=== PATIENT | male | born 1945 | race African-American/Black ===

== ENCOUNTER 2017-02-09 12:29 | Inpatient (IN) | payer OTHER, MEDICARE ==
[~2017-02-09] VITALS: Ht 172.7 cm; Wt 77.1 kg
[2017-02-09] MEDS ORDERED: Pantoprazole Inj IVP ONE (12:45)
[2017-02-09 13:22] LABS: BASOPHILS % (AUTO) 0.8 % (0.0-2.0); EOSINOPHILS % (AUTO) 1.4 % (0.0-3.0); LYMPHOCYTES % (AUTO) 10.4 % (20.0-45.0); MEAN CORPUSCULAR HEMOGLOBIN 28.1 PG (27.0-31.0); MEAN CORPUSCULAR HGB CONC 29.2 G/DL (32.0-36.0); MEAN CORPUSCULAR VOLUME 96 FL (80-99); MEAN PLATELET VOLUME 10.8 FL (6.5-10.1); MONOCYTES % (AUTO) 7.4 % (1.0-10.0); NEUTROPHILS % (AUTO) 79.9 % (45.0-75.0); PLATELET COUNT 125 K/UL (150-450); RED BLOOD COUNT 2.98 M/UL (4.70-6.10); RED CELL DISTRIBUTION WIDTH 12.4 % (11.6-14.8); WHITE BLOOD COUNT 11.4 K/UL (4.8-10.8)
[2017-02-09 13:23] LABS: PROTHROMBIN TIME 10.7 SEC (9.30-11.50)
[2017-02-09 13:34] LABS: ANION GAP 9 mmol/L (5-15); CALCIUM 9.1 MG/DL (8.5-10.1); CARBON DIOXIDE 27 MMOL/L (21-32); CHLORIDE 107 MMOL/L (98-107); POTASSIUM 4.2 MMOL/L (3.5-5.1); SODIUM 143 MMOL/L (136-145)
[2017-02-09 13:38] LABS: ALANINE AMINOTRANSFERASE 15 U/L (12-78); ALBUMIN/GLOBULIN RATIO 0.8 (1.0-2.7); ASPARTATE AMINO TRANSFERASE 11 U/L (15-37); LIPASE 106 U/L (73-393); TOTAL PROTEIN 7.7 G/DL (6.4-8.2)
[2017-02-09] MEDS ORDERED: ATROPINE 0.01%-10 ML OP (13:41)
[2017-02-09] MEDS ORDERED: ISOSORBIDE MONO20 MG PO (13:41)
[2017-02-09] MEDS ORDERED: CARVEDILOL12.5 MG ORAL (13:41)
[2017-02-09] MEDS ORDERED: AMLODIPINE BESY10 MG ORAL (13:41)
[2017-02-09] MEDS ORDERED: ASPIR 8181 MG ORAL (13:41)
[2017-02-09] MEDS ORDERED: PREDNISOLONE ACE5 ML OP (13:41)
[2017-02-09] MEDS ORDERED: SENNA8.6 M2 PO (13:41)
[2017-02-09] MEDS ORDERED: HYDRALAZINE HCL25 M1 ORAL (13:41)
[2017-02-09] MEDS ORDERED: VITAMIN D1000 UNI1 ORAL (13:41)
[2017-02-09] MEDS ORDERED: BUMETANIDE2 MG ORAL (13:41)
[2017-02-09] MEDS ORDERED: BRIMONIDINE TART5 ML RIGHT EYE (13:41)
[2017-02-09] MEDS ORDERED: XALATAN2.5 ML RIGHT EYE (13:41)
[2017-02-09] MEDS ORDERED: ATORVASTATIN CA40 MG ORAL (13:41)
[2017-02-09] MEDS ORDERED: COSOPT1 DRO2 RIGHT EYE (13:41)
[2017-02-09] MEDS ORDERED: PLAVIX75 MG ORAL (13:41)
--- NOTE | 2017-02-09 13:43 | Emergency Room Report ---
History of Present Illness General Chief Complaint: Gastrointestinal Bleed Source: Patient, Family Member, EMS Present Illness HPI 72-year-old male brought in by EMS from SNF with vomiting blood EMS denies any vomiting blood in route No other vomiting here History of present illness limited due to patient's dementia paperwork from SNF does not provide additional information on hematemesis Patient's daughter stated that he has been vomiting for 2 weeks since admission to SNF. Had issues with constipation in the past relief with enema. History of SBO or other obstruction previously. Past medical history: CAD, PTSD, anemia from CTD, prostate cancer, PBD, HRT, dementia, hypertension, CHF, right BKA Allergies: Coded Allergies: No Known Allergies (Unverified , 02/09/17) Patient History Past Medical History: other - the history of present illness Past Surgical History: unable to obtain Pertinent Family History: unable to obtain Social History: Denies: smoking, alcohol use, drug use Reviewed Nursing Documentation: PMH: Agreed, PSxH: Agreed Nursing Documentation-PMH Past Medical History: No History, Except For Hx Cardiac Problems: Yes - CAD Hx Hypertension: Yes Hx Cancer: Yes - PROSTATE Hx Dialysis: No - CKD Hx Neurological Problems: Yes - DEMENTIA Review of Systems All Other Systems: limited - dementia Physical Exam Vital Signs Date Time Temp Pulse Resp B/P (MAP) Pulse Ox O2 Delivery O2 Flow Rate FiO2 02/09/17 12:25 97.0 77 20 139/66 100 Room Air Sp02 EP Interpretation: reviewed, normal General Appearance: normal inspection, well appearing, no apparent distress, alert, GCS 15, non-toxic Head: normocephalic, atraumatic Eyes: bilateral eye PERRL, bilateral eye EOMI ENT: normal ENT inspection, hearing grossly normal, normal pharynx, no angioedema, normal voice, TMs + canals normal, uvula midline, moist mucus membranes Neck: normal inspection, full range of motion, supple, thyroid normal, no meningismus, no bony tend Respiratory: normal inspection, lungs clear, normal breath sounds, no rhonchi, no respiratory distress, no retraction, no accessory muscle use, no wheezing, speaking full sentences Cardiovascular #1: regular rate, rhythm, no edema, no JVD, normal capillary refill Gastrointestinal: normal inspection, normal bowel sounds, no peritonitis, non- distended, no guarding, no hernia, no pulsatile mass, other - Mild abd distention. TTP max periumbilical Genitourinary: no CVA tenderness Musculoskeletal: normal inspection, back normal, normal range of motion, no calf tenderness, pelvis stable, Violeta's Sign negative Neurologic: normal inspection, alert, oriented x3, responsive, vulcanizer operator III-XII nml as tested, motor strength/tone normal, cerebellar normal, normal gait, speech normal Psychiatric: normal inspection, judgement/insight normal, mood/affect normal, no suicidal/homicidal ideation, no delusions Skin: normal inspection, normal color, no rash Lymphatic: normal inspection, no adenopathy Medical Decision Making Diagnostic Impression: Primary Impression: Hematemesis Qualified Codes: K92.0 - Hematemesis Additional Impressions: Hyperglycemia CKD (chronic kidney disease) Qualified Codes: N18.9 - Chronic kidney disease, unspecified Abdominal pain Qualified Codes: R10.33 - Periumbilical pain Constipation Qualified Codes: K59.00 - Constipation, unspecified ER Course Hematemesis: hb 8.5. Labs also showed CKD., creatinine 4.0, but K normal. mild leukocytosis, likely reactionary from vomiting Given protonix bolus and gtt for upper GI bleed CT abdomen does not show SBO or volvulus on ER review Likely constipation due to immobility and poor transit Endorse to Dr. Tran for Dr Evans Patient from [place] Tele admit 219pm EKG Diagnostic Results Rate: tachycardiac Rhythm: NSR ST Segments: no acute changes ASA given to the pt in ED: No Rhythm Strip Diag. Results EP Interpretation: yes Rate: 62 Rhythm: NSR, no PVC's, no ectopy Last Vital Signs Date Time Temp Pulse Resp B/P (MAP) Pulse Ox O2 Delivery O2 Flow Rate FiO2 02/09/17 12:25 97.0 77 20 139/66 100 Room Air Status: improved Disposition: ADMITTED INPATIENT Condition: Serious Referrals: ZARI EVANS (PCP) TOM JORGENSEN M.D. Feb 09, 2017 13:43
[2017-02-09] MEDS ORDERED: Pantoprazole 80 MG in NS 250 ML IV ONE (13:45)
[2017-02-09] MEDS ORDERED: Pantoprazole Inj ONE (13:52)
[2017-02-09 14:21] VITALS: BP 153/63
[2017-02-09 14:35] VITALS: BP 128/65
[2017-02-09] MEDS ORDERED: Miralax 17gm pkt ORAL PRN (14:45)
[2017-02-09] MEDS ORDERED: Morphine Sulfate 2mg/ml Inj IVP PRN (14:45)
[2017-02-09] MEDS ORDERED: Mylanta II UD 30ml ORAL PRN (14:45)
[2017-02-09] MEDS ORDERED: Nitroglycerin Subl 0.4mg tab SL PRN (14:45)
--- NOTE | 2017-02-09 15:05 | GI Initial Consult Note ---
LoydaMay Rah N.P. 02/09/17 1505: History of Present Illness General Date patient seen: Feb 09, 2017 Time patient seen: 15:01 Reason for Hospitalization: Gastrointestinal Bleed Referring physician: AUGUST CHU Reason for Consultation: UGIB Present Illness HPI 72-year-old male brought in by EMS from [facility] with vomiting blood EMS denies any vomiting blood in route No other vomiting here History of present illness limited due to patient's dementia paperwork from [facility] does not provide additional information on hematemesis Patient's daughter stated that he has been vomiting for 2 weeks since admission to SNF. Had issues with constipation in the past relief with enema. History of SBO or other obstruction previously. GI consulted for UGIB. HPI as noted above. Pt seen on floor, awake A&Ox4 NAD with no active s/sx of N/V/D. No reports of hematemesis in the ED. Per patient , he had multiple episodes of hematemesis he reports as "a lot." NAD. Presents today with mild leukocytosis and anemia. Lipase WNL. Denies any history of endoscopies / colonoscopies. Home Meds Reported Medications Sennosides (SENNA) 8.6 Mg Tablet, 17.2 MG PO, TAB 02/09/17 Prednisolone Acetate (PREDNISOLONE ACETATE) 5 Ml Drops.susp, 5 ML OP QID 02/09/17 Latanoprost* (XALATAN*) 2.5 Ml Drops, 1 DROP RIGHT EYE BEDTIME, #2.5 ML 0 Refills 02/09/17 Isosorbide Mononitrate (ISOSORBIDE MONONITRATE) 20 Mg Tablet, 60 MG PO BEDTIME, TAB 02/09/17 Hydralazine Hcl* (HYDRALAZINE HCL*) 25 Mg Tablet, 25 MG ORAL EVERY 12 HOURS, TAB 0 Refills 02/09/17 Dorzolamide HCl/Timolol Maleat (Dorzolamide-Timolol Eye Drops) 10 Ml Drops, 1 DROP RIGHT EYE BID, ML 02/09/17 Clopidogrel Bisulfate* (PLAVIX*) 75 Mg Tablet, 75 MG ORAL DAILY, TAB 02/09/17 Cholecalciferol (Vitamin D3)* (VITAMIN D*) 1,000 Unit Tablet, 1000 UNIT ORAL DAILY, #30 TAB 02/09/17 Carvedilol* (CARVEDILOL*) 12.5 Mg Tablet, 12.5 MG ORAL EVERY 12 HOURS, TAB 02/09/17 Bumetanide* (BUMETANIDE*) 2 Mg Tablet, 2 MG ORAL DAILY, TAB 02/09/17 Brimonidine Tartrate* (ALPHAGAN*) 5 Ml Drops, 1 DROP RIGHT EYE BID, ML 02/09/17 Atropine Sulfate in 0.9% NaCl (ATROPINE 0.01%-NS EYE DROPS) 10 Ml Drops, OP, ML 02/09/17 Atorvastatin Calcium* (ATORVASTATIN CALCIUM*) 40 Mg Tablet, 80 MG ORAL BEDTIME, TAB 02/09/17 Aspirin* (ASPIR 81*) 81 Mg Tablet.dr, 81 MG ORAL DAILY, TAB 02/09/17 Amlodipine Besylate* (AMLODIPINE BESYLATE*) 10 Mg Tablet, 10 MG ORAL DAILY, TAB 02/09/17 Med list reviewed/reconciled: Yes Allergies: Coded Allergies: No Known Allergies (Unverified , 02/09/17) Patient History PMH Narrative Past medical history: CAD, PTSD, anemia from CTD, prostate cancer, PBD, HRT, dementia, hypertension, CHF, right BKA Past Medical History: other - the history of present illness Past Surgical History: unable to obtain Pertinent Family History: unable to obtain Social History: Denies: smoking, alcohol use, drug use Reviewed Nursing Documentation: PMH: Agreed, PSxH: Agreed Nursing Documentation-PMH Past Medical History: No History, Except For Hx Cardiac Problems: Yes - CAD Hx Hypertension: Yes Hx Cancer: Yes - PROSTATE Hx Dialysis: No - CKD Hx Neurological Problems: Yes - DEMENTIA Review of Systems All Other Systems: negative except mentioned in HPI Physical Exam Vital Signs Date Time Temp Pulse Resp B/P (MAP) Pulse Ox O2 Delivery O2 Flow Rate FiO2 02/09/17 12:25 97.0 77 20 139/66 100 Room Air Sp02 EP Interpretation: reviewed, normal Labs Laboratory Tests Test 02/09/17 13:04 White Blood Count 11.4 K/UL (4.8-10.8) H Red Blood Count 2.98 M/UL (4.70-6.10) L Hemoglobin 8.4 G/DL (14.2-18.0) L Hematocrit 28.6 % (42.0-52.0) L Mean Corpuscular Volume 96 FL (80-99) Mean Corpuscular Hemoglobin 28.1 PG (27.0-31.0) Mean Corpuscular Hemoglobin Concent 29.2 G/DL (32.0-36.0) L Red Cell Distribution Width 12.4 % (11.6-14.8) Platelet Count 125 K/UL (150-450) L Mean Platelet Volume 10.8 FL (6.5-10.1) H Neutrophils (%) (Auto) 79.9 % (45.0-75.0) H Lymphocytes (%) (Auto) 10.4 % (20.0-45.0) L Monocytes (%) (Auto) 7.4 % (1.0-10.0) Eosinophils (%) (Auto) 1.4 % (0.0-3.0) Basophils (%) (Auto) 0.8 % (0.0-2.0) Prothrombin Time 10.7 SEC (9.30-11.50) Prothromb Time International Ratio 1.0 (0.9-1.1) Sodium Level 143 MMOL/L (136-145) Potassium Level 4.2 MMOL/L (3.5-5.1) Chloride Level 107 MMOL/L (98-107) Carbon Dioxide Level 27 MMOL/L (21-32) Anion Gap 9 mmol/L (5-15) Blood Urea Nitrogen 69 mg/dL (7-18) H Creatinine 4.0 MG/DL (0.55-1.30) H Estimat Glomerular Filtration Rate mL/min (>60) Glucose Level 388 MG/DL (74-106) H Calcium Level 9.1 MG/DL (8.5-10.1) Total Bilirubin 0.4 MG/DL (0.2-1.0) Aspartate Amino Transf (AST/SGOT) 11 U/L (15-37) L Alanine Aminotransferase (ALT/SGPT) 15 U/L (12-78) Alkaline Phosphatase 194 U/L (46-116) H Total Protein 7.7 G/DL (6.4-8.2) Albumin 3.3 G/DL (3.4-5.0) L Globulin 4.4 g/dL Albumin/Globulin Ratio 0.8 (1.0-2.7) L Lipase 106 U/L (73-393) General Appearance: well appearing, no apparent distress, alert Head: normocephalic EENT: PERRL/EOMI, normal ENT inspection Neck: supple Respiratory: normal breath sounds, no respiratory distress Cardiovascular: normal rate Gastrointestinal: normal inspection, non tender, soft, normal bowel sounds, non -distended Rectal: deferred Genitourinary: deferred Musculoskeletal: normal inspection, back normal, other - R leg prothesis Neurologic: normal inspection, alert, responsive Psychiatric: normal inspection, judgement/insight normal, memory normal Skin: normal inspection, normal color, no rash, warm/dry, palpation normal, well hydrated Lymphatic: normal inspection, no adenopathy Current Medications Current Medications Medications (Trade) Dose Ordered Sig/Thad Route PRN Reason Start Time Stop Time Status Last Admin Dose Admin Acetaminophen (Tylenol) 650 mg Q4H PRN ORAL fever 02/09/17 14:45 03/11/17 14:44 Al Hydroxide/Mg Hydroxide (Mylanta II) 30 ml Q6H PRN ORAL dyspepsia 02/09/17 14:45 03/11/17 14:44 Amlodipine Besylate (Norvasc) 10 mg DAILY ORAL 02/10/17 09:00 03/12/17 08:59 Carvedilol (Coreg) 12.5 mg EVERY 12 HOURS ORAL 02/09/17 21:00 03/11/17 20:59 Dextrose (Dextrose 50%) STAT PRN IV Hypoglycemia 02/09/17 14:45 03/11/17 14:44 Dextrose/Sodium Chloride 1,000 ml @ 100 mls/hr Q10H IV 02/09/17 16:00 03/11/17 15:59 Diphenhydramine HCl (Benadryl) 25 mg Q6H PRN ORAL Itching/Pruritis 02/09/17 14:45 03/11/17 14:44 Hydralazine HCl (Apresoline) 25 mg EVERY 12 HOURS ORAL 02/09/17 21:00 03/11/17 20:59 Morphine Sulfate (Morphine Sulfate) 2 mg Q4H PRN IVP severe Pain (Pain Scale 7-10) 02/09/17 14:45 02/16/17 14:44 Nitroglycerin (Ntg) 0.4 mg Q5M X 3 DOSES PRN SL Prn Chest Pain 02/09/17 14:45 03/11/17 14:44 Ondansetron HCl (Zofran) 4 mg Q6H PRN IVP Nausea & Vomiting 02/09/17 14:45 03/11/17 14:44 Pantoprazole 80 mg/Sodium Chloride 250 ml @ 25 mls/hr Q10H ONCE IV 02/09/17 13:45 02/09/17 23:44 02/09/17 13:59 Phytonadione 10 mg/Dextrose 56 ml @ 110 mls/hr ONCE ONCE IVPB 02/09/17 15:45 02/09/17 16:15 Polyethylene Glycol (Miralax) 17 gm HSPRN PRN ORAL Constipation 1st line Agent 02/09/17 14:45 03/11/17 14:44 Sennosides (Senokot) 17.2 mg DAILY ORAL 02/10/17 09:00 03/12/17 08:59 Sodium Chloride 1,000 ml @ 100 mls/hr Q10H ONCE IV 02/09/17 12:38 02/09/17 22:37 02/09/17 12:52 Temazepam (Restoril) 15 mg HSPRN PRN ORAL Insomnia 02/09/17 14:45 02/16/17 14:44 GI: Plan Problems: (1) Anemia (2) Hematemesis (3) Constipation (4) Abdominal pain Plan EGD scheduled for tomorrow. - maintain NPO + IVFs, ice chips ok. - hold all blood thinners - cont PPI gtt, transition to BID after last bag. anemia work up OB stool r/o GI bleed monitor H&H, prn transfusions bowel regime ppi zofran prn fu labs Discussed with Dr. Grady. Thank you for this patient referral, we will follow. DAYNA GRADY 02/11/17 0854: History of Present Illness General Reason for Hospitalization: Gastrointestinal Bleed Present Illness Home Meds Reported Medications Sennosides (SENNA) 8.6 Mg Tablet, 17.2 MG PO, TAB 02/09/17 Prednisolone Acetate (PREDNISOLONE ACETATE) 5 Ml Drops.susp, 5 ML OP QID 02/09/17 Latanoprost* (XALATAN*) 2.5 Ml Drops, 1 DROP RIGHT EYE BEDTIME, #2.5 ML 0 Refills 02/09/17 Isosorbide Mononitrate (ISOSORBIDE MONONITRATE) 20 Mg Tablet, 60 MG PO BEDTIME, TAB 02/09/17 Hydralazine Hcl* (HYDRALAZINE HCL*) 25 Mg Tablet, 25 MG ORAL EVERY 12 HOURS, TAB 0 Refills 02/09/17 Dorzolamide HCl/Timolol Maleat (Dorzolamide-Timolol Eye Drops) 10 Ml Drops, 1 DROP RIGHT EYE BID, ML 02/09/17 Clopidogrel Bisulfate* (PLAVIX*) 75 Mg Tablet, 75 MG ORAL DAILY, TAB 02/09/17 Cholecalciferol (Vitamin D3)* (VITAMIN D*) 1,000 Unit Tablet, 1000 UNIT ORAL DAILY, #30 TAB 02/09/17 Carvedilol* (CARVEDILOL*) 12.5 Mg Tablet, 12.5 MG ORAL EVERY 12 HOURS, TAB 02/09/17 Bumetanide* (BUMETANIDE*) 2 Mg Tablet, 2 MG ORAL DAILY, TAB 02/09/17 Brimonidine Tartrate* (ALPHAGAN*) 5 Ml Drops, 1 DROP RIGHT EYE BID, ML 02/09/17 Atropine Sulfate in 0.9% NaCl (ATROPINE 0.01%-NS EYE DROPS) 10 Ml Drops, OP, ML 02/09/17 Atorvastatin Calcium* (ATORVASTATIN CALCIUM*) 40 Mg Tablet, 80 MG ORAL BEDTIME, TAB 02/09/17 Aspirin* (ASPIR 81*) 81 Mg Tablet.dr, 81 MG ORAL DAILY, TAB 02/09/17 Amlodipine Besylate* (AMLODIPINE BESYLATE*) 10 Mg Tablet, 10 MG ORAL DAILY, TAB 02/09/17 Allergies: Coded Allergies: No Known Allergies (Unverified , 02/09/17) Patient History Social History Narrative The patient was seen and examined at bedside and all new and available data was reviewed in the patients chart. I agree with the above findings, impression and plan. (Patient seen earlier today. Signature stamp does not reflect patient encounter time.). - MD Loyda Sweet Anh Rah N.PLuis Feb 09, 2017 15:05 DAYNA GRADY Feb 11, 2017 08:54
[2017-02-09] MEDS ORDERED: Phytonadione 10 MG in D5W 55 ML IVPB ONE (15:45)
[2017-02-09 17:58] VITALS: BP 150/69
[2017-02-09] MEDS: D5NS 1,000 ML IV SCH (17:59)
--- NOTE | 2017-02-09 18:54 | Consultation ---
History of Present Illness General Date patient seen: Feb 09, 2017 Chief Complaint: Gastrointestinal Bleed Referring physician: AUGUST CHU Reason for Consultation: UGIB Present Illness HPI 72-year-old male with Pas medical history of CAD, CRI, anemia, prostate cancer, dementia, hypertension, CHF, right BKA brought in by EMS from SNF with vomiting blood Patient's daughter stated that he has been vomiting for 2 weeks since admission to SNF. Pt was anemic in ER and admitted to telemetry for acute GI bleeding. Allergies: Coded Allergies: No Known Allergies (Unverified , 02/09/17) Medication History Scheduled Amlodipine Besylate* (Amlodipine Besylate*), 10 MG ORAL DAILY, (Reported) Aspirin* (Aspir 81*), 81 MG ORAL DAILY, (Reported) Atorvastatin Calcium* (Atorvastatin Calcium*), 80 MG ORAL BEDTIME, (Reported) Brimonidine Tartrate* (Alphagan*), 1 DROP RIGHT EYE BID, (Reported) Bumetanide* (Bumetanide*), 2 MG ORAL DAILY, (Reported) Carvedilol* (Carvedilol*), 12.5 MG ORAL EVERY 12 HOURS, (Reported) Cholecalciferol (Vitamin D3)* (Vitamin D*), 1,000 UNIT ORAL DAILY, (Reported) Clopidogrel Bisulfate* (Plavix*), 75 MG ORAL DAILY, (Reported) Dorzolamide HCl/Timolol Maleat (Dorzolamide-Timolol Eye Drops), 1 DROP RIGHT EYE BID, (Reported) Hydralazine Hcl* (Hydralazine Hcl*), 25 MG ORAL EVERY 12 HOURS, (Reported) Isosorbide Mononitrate (Isosorbide Mononitrate), 60 MG PO BEDTIME, (Reported) Latanoprost* (Xalatan*), 1 DROP RIGHT EYE BEDTIME, (Reported) Prednisolone Acetate (Prednisolone Acetate), 5 ML OP QID, (Reported) Miscellaneous Medications Atropine Sulfate in 0.9% NaCl (Atropine 0.01%-Ns Eye Drops), Unknown Dose OP, ( Reported) Sennosides (Senna), 17.2 MG PO, (Reported) Patient History Healthcare decision maker VAMSI KNOTT Resuscitation status Advanced Directive on File No Past Medical/Surgical History Past Medical/Surgical History: (1) PVD (peripheral vascular disease) (2) Hx of right BKA (3) CKD (chronic kidney disease) (4) Hyperglycemia (5) Dementia Review of Systems Constitutional: Reports: no symptoms Eye: Reports: no symptoms Respiratory: Reports: no symptoms Physical Exam General Appearance: WD/WN Lines, tubes and drains: peripheral HEENT: normocephalic Neck: non-tender, normal alignment Respiratory/Chest: chest wall non-tender, lungs clear Breasts: no masses Cardiovascular/Chest: normal peripheral pulses Abdomen: normal bowel sounds Extremities: normal range of motion Skin Exam: normal pigmentation Last 24 Hour Vital Signs Date Time Temp Pulse Resp B/P (MAP) Pulse Ox O2 Delivery O2 Flow Rate FiO2 02/09/17 17:58 97.9 66 19 150/69 Room Air 02/09/17 14:30 66 12 153/63 99 Room Air 02/09/17 14:21 97.0 66 12 153/63 99 Room Air 02/09/17 12:25 97.0 77 20 139/66 100 Room Air Intake and Output 02/09/17 02/10/17 19:00 07:00 Intake Total 0 ml Balance 0 ml Intake Oral 0 ml Laboratory Tests Test 02/09/17 13:04 White Blood Count 11.4 K/UL (4.8-10.8) H Red Blood Count 2.98 M/UL (4.70-6.10) L Hemoglobin 8.4 G/DL (14.2-18.0) L Hematocrit 28.6 % (42.0-52.0) L Mean Corpuscular Volume 96 FL (80-99) Mean Corpuscular Hemoglobin 28.1 PG (27.0-31.0) Mean Corpuscular Hemoglobin Concent 29.2 G/DL (32.0-36.0) L Red Cell Distribution Width 12.4 % (11.6-14.8) Platelet Count 125 K/UL (150-450) L Mean Platelet Volume 10.8 FL (6.5-10.1) H Neutrophils (%) (Auto) 79.9 % (45.0-75.0) H Lymphocytes (%) (Auto) 10.4 % (20.0-45.0) L Monocytes (%) (Auto) 7.4 % (1.0-10.0) Eosinophils (%) (Auto) 1.4 % (0.0-3.0) Basophils (%) (Auto) 0.8 % (0.0-2.0) Prothrombin Time 10.7 SEC (9.30-11.50) Prothromb Time International Ratio 1.0 (0.9-1.1) Sodium Level 143 MMOL/L (136-145) Potassium Level 4.2 MMOL/L (3.5-5.1) Chloride Level 107 MMOL/L (98-107) Carbon Dioxide Level 27 MMOL/L (21-32) Anion Gap 9 mmol/L (5-15) Blood Urea Nitrogen 69 mg/dL (7-18) H Creatinine 4.0 MG/DL (0.55-1.30) H Estimat Glomerular Filtration Rate mL/min (>60) Glucose Level 388 MG/DL (74-106) H Calcium Level 9.1 MG/DL (8.5-10.1) Total Bilirubin 0.4 MG/DL (0.2-1.0) Aspartate Amino Transf (AST/SGOT) 11 U/L (15-37) L Alanine Aminotransferase (ALT/SGPT) 15 U/L (12-78) Alkaline Phosphatase 194 U/L (46-116) H Total Protein 7.7 G/DL (6.4-8.2) Albumin 3.3 G/DL (3.4-5.0) L Globulin 4.4 g/dL Albumin/Globulin Ratio 0.8 (1.0-2.7) L Lipase 106 U/L (73-393) Height (Feet): 5 Height (Inches): 8.00 Weight (Pounds): 170 Medications Current Medications Medications (Trade) Dose Ordered Sig/Thad Route PRN Reason Start Time Stop Time Status Last Admin Dose Admin Acetaminophen (Tylenol) 650 mg Q4H PRN ORAL fever 02/09/17 14:45 03/11/17 14:44 Al Hydroxide/Mg Hydroxide (Mylanta II) 30 ml Q6H PRN ORAL dyspepsia 02/09/17 14:45 03/11/17 14:44 Amlodipine Besylate (Norvasc) 10 mg DAILY ORAL 02/10/17 09:00 03/12/17 08:59 Carvedilol (Coreg) 12.5 mg EVERY 12 HOURS ORAL 02/09/17 21:00 03/11/17 20:59 Dextrose (Dextrose 50%) STAT PRN IV Hypoglycemia 02/09/17 14:45 03/11/17 14:44 Dextrose/Sodium Chloride 1,000 ml @ 100 mls/hr Q10H IV 02/09/17 16:00 03/11/17 15:59 02/09/17 17:59 Diphenhydramine HCl (Benadryl) 25 mg Q6H PRN ORAL Itching/Pruritis 02/09/17 14:45 03/11/17 14:44 Hydralazine HCl (Apresoline) 25 mg EVERY 12 HOURS ORAL 02/09/17 21:00 03/11/17 20:59 Morphine Sulfate (Morphine Sulfate) 2 mg Q4H PRN IVP severe Pain (Pain Scale 7-10) 02/09/17 14:45 02/16/17 14:44 Nitroglycerin (Ntg) 0.4 mg Q5M X 3 DOSES PRN SL Prn Chest Pain 02/09/17 14:45 03/11/17 14:44 Ondansetron HCl (Zofran) 4 mg Q6H PRN IVP Nausea & Vomiting 02/09/17 14:45 03/11/17 14:44 Polyethylene Glycol (Miralax) 17 gm HSPRN PRN ORAL Constipation 1st line Agent 02/09/17 14:45 03/11/17 14:44 Sennosides (Senokot) 17.2 mg DAILY ORAL 02/10/17 09:00 03/12/17 08:59 Temazepam (Restoril) 15 mg HSPRN PRN ORAL Insomnia 02/09/17 14:45 02/16/17 14:44 Assessment/Plan Problem List: (1) Symptomatic anemia ICD Codes: D64.9 - Anemia, unspecified SNOMED: 958263363 (2) Hematemesis ICD Codes: K92.0 - Hematemesis SNOMED: 6111270 Qualifiers: Qualified Codes: K92.0 - Hematemesis (3) Hx of right BKA ICD Codes: Z89.511 - Acquired absence of right leg below knee SNOMED: 533267811, 898620011, 342609963 (4) Dementia ICD Codes: F03.90 - Unspecified dementia without behavioral disturbance SNOMED: 82409143 (5) At high risk for aspiration ICD Codes: Z91.89 - Other specified personal risk factors, not elsewhere classified SNOMED: 998679772 (6) Hypertension ICD Codes: I10 - Essential (primary) hypertension SNOMED: 37738390 (7) Diabetes mellitus ICD Codes: E11.9 - Type 2 diabetes mellitus without complications SNOMED: 39539572 Assessment/Plan NPO GI evaluation IV fluids sliding scale swallow evaluation symptomatic treatment. JACKSON LAY Feb 09, 2017 18:54
[2017-02-09 20:08] VITALS: BP 139/69
[2017-02-09] MEDS: Carvedilol 12.5mg tab ORAL SCH (21:35)
[2017-02-09] MEDS: HydrALAZINE 25mg tab ORAL SCH (21:36)
[2017-02-09] MEDS: NovoLOG Insulin Flexpen SUBQ SCH (22:21)
[2017-02-10] VITALS (11 sets, daily range): BP systolic 147–168; BP diastolic 59–80
[2017-02-10] MEDS: D5NS 1,000 ML IV SCH ×2 (01:35→04:20)
--- NOTE | 2017-02-10 05:02 | Diagnostic Imaging Report ---
Indication: 72-year-old male vomiting blood Technique: Spiral acquisitions obtained through the abdomen and pelvis. No oral contrast utilized, reason stated No IV contrast utilized, reasons not stated.. Multiplanar reconstructions were generated. Total dose length product 750 mGycm. CTDIvol(s) 50 mGy. Dose reduction achieved using automated exposure control Comparison: none Findings: Lack of enteric contrast limits assessment of the GI tract. There is mild distention of the rectum with feces, mild thickening of the rectal wall, and minimal presacral fat stranding. There is considerable stool throughout the remainder of the colon. No evidence of diverticulosis or diverticulitis. The appendix is normal. The terminal ileum is somewhat prominent, demonstrates small bowel feces, but no wall thickening. No small bowel distention otherwise. No free or loculated intraperitoneal air or fluid. There is a hiatal hernia, as well as diffuse distention with fluid and food in the distal esophagus. The stomach and duodenum are otherwise unremarkable. Lack of IV contrast limits assessment of the solid organs. The gallbladder contains gallstones. The liver demonstrates a calcification within segment 4A. The bile ducts are unremarkable. The pancreas is unremarkable. The spleen contains calcifications. The adrenals are unremarkable. The kidneys demonstrate lobulated margins. The right kidney demonstrates a 1.8 cm cyst in the lower pole. No renal or ureteral calculi, hydronephrosis, or hydroureter. The bladder wall is equivocally mildly thickened. No pelvic mass or adenopathy. There is evidence of prior prostatectomy and pelvic oralia dissection. There is a pericardial effusion measuring up to 12 mm thick. The heart is enlarged. Granulomatous calcification is seen at the right lung base. Linear bands of atelectasis and/or scarring are seen at both lung bases. The bones demonstrate degenerative proliferative spondylosis of the lower thoracic spine and of the lumbar facets. Impression: Limited assessment of the GI tract, given lack of enteric contrast administration Mild distention of the rectum with feces, mild thickening of the wall, and some infiltration of the presacral fat, could indicate mild fecal impaction with associated stercoral colitis. Correlate with clinical findings Prominence of the terminal ileum, with evidence of stasis of contents, significance uncertain. No definite obstructive pathology, however. Hiatal hernia. Diffuse distention of the distal esophagus with food and fluid, probably on the basis of dysmotility Cholelithiasis Equivocal gallbladder wall thickening, could indicate cystitis or chronic bladder obstruction Evidence of prior prostatectomy Pericardial effusion Cardiomegaly Other findings as noted, including degenerative proliferative spondylosis; granulomatous calcifications of the right lung base, liver, and spleen; right lower pole renal cyst The CT scanner at [facility] is accredited by the [employer] and the scans are performed using protocols designed to limit radiation exposure to as low as reasonably achievable to attain images of sufficient resolution adequate for diagnostic evaluation.
[2017-02-10] MEDS: NovoLOG Insulin Flexpen SUBQ SCH ×4 (06:34→21:53)
--- NOTE | 2017-02-10 06:55 | Anethesia Preoperative Eval ---
Anesthesia Pre-op PMH/ROS General Date of Evaluation: Feb 10, 2017 Time of Evaluation: 06:46 Anesthesiologist: savage ASA Score: ASA 4 Mallampati Score Class I : Soft palate, uvula, fauces, pillars visible Class II: Soft palate, uvula, fauces visible Class III: Soft palate, base of uvula visible Class IV: Only hard plate visible Mallampati Classification: Class II Surgeon: dusty Diagnosis: gi bleed Surgical Procedure: egd Anesthesia History: none Social History: smoking - nonsmoker Family History: no anesthesia problems Allergies: Coded Allergies: No Known Allergies (Unverified , 02/09/17) Medications: see eMAR Past Medical History Cardiovascular: Reports: HTN, CAD Gastrointestinal/Genitourinary: Reports: GERD, ESRD Neurologic/Psychiatric: Reports: dementia, other - blind Endocrine: Reports: DM Musculoskeletal/Integumentary: Reports: other - bka Anesthesia Pre-op Phys. Exam Physician Exam Last Vital Signs Date Time Temp Pulse Resp B/P (MAP) Pulse Ox O2 Delivery O2 Flow Rate FiO2 02/10/17 04:00 97.7 74 20 150/59 93 Room Air Constitutional: NAD Neurologic: other - blind Cardiovascular: RRR Respiratory: CTA Gastrointestinal: S/NT/ND Airway Exam Mallampati Score: Class II MO: full Neck: supple TMD: 2fb ROM: limited Anesthesia Pre-op A/P Labs Hematology Test 02/09/17 13:04 White Blood Count 11.4 K/UL (4.8-10.8) H Red Blood Count 2.98 M/UL (4.70-6.10) L Hemoglobin 8.4 G/DL (14.2-18.0) L Hematocrit 28.6 % (42.0-52.0) L Mean Corpuscular Volume 96 FL (80-99) Mean Corpuscular Hemoglobin 28.1 PG (27.0-31.0) Mean Corpuscular Hemoglobin Concent 29.2 G/DL (32.0-36.0) L Red Cell Distribution Width 12.4 % (11.6-14.8) Platelet Count 125 K/UL (150-450) L Mean Platelet Volume 10.8 FL (6.5-10.1) H Neutrophils (%) (Auto) 79.9 % (45.0-75.0) H Lymphocytes (%) (Auto) 10.4 % (20.0-45.0) L Monocytes (%) (Auto) 7.4 % (1.0-10.0) Eosinophils (%) (Auto) 1.4 % (0.0-3.0) Basophils (%) (Auto) 0.8 % (0.0-2.0) Coagulation Test 02/09/17 13:04 Prothrombin Time 10.7 SEC (9.30-11.50) Prothromb Time International Ratio 1.0 (0.9-1.1) Chemistry Test 02/09/17 13:04 Sodium Level 143 MMOL/L (136-145) Potassium Level 4.2 MMOL/L (3.5-5.1) Chloride Level 107 MMOL/L (98-107) Carbon Dioxide Level 27 MMOL/L (21-32) Anion Gap 9 mmol/L (5-15) Blood Urea Nitrogen 69 mg/dL (7-18) H Creatinine 4.0 MG/DL (0.55-1.30) H Estimat Glomerular Filtration Rate mL/min (>60) Glucose Level 388 MG/DL (74-106) H Calcium Level 9.1 MG/DL (8.5-10.1) Total Bilirubin 0.4 MG/DL (0.2-1.0) Aspartate Amino Transf (AST/SGOT) 11 U/L (15-37) L Alanine Aminotransferase (ALT/SGPT) 15 U/L (12-78) Alkaline Phosphatase 194 U/L (46-116) H Total Protein 7.7 G/DL (6.4-8.2) Albumin 3.3 G/DL (3.4-5.0) L Globulin 4.4 g/dL Albumin/Globulin Ratio 0.8 (1.0-2.7) L Lipase 106 U/L (73-393) Accucheck 289 Risk Assessment & Plan Assessment: [email or web address] Plan: mac Status Change Before Surgery: No Pre-Antibiotics Drug: RONY Mercedes Feb 10, 2017 06:55
[2017-02-10] MEDS ORDERED: DiphenhydrAMINE 50mg/ml Inj IVP PRN (07:00)
[2017-02-10] MEDS ORDERED: Lidocaine 1% MPF 10mg/ml 5ml ONE (07:00)
[2017-02-10] MEDS ORDERED: Atropine Inj 1mg/10ml Syr IV PRN (07:00)
[2017-02-10] MEDS ORDERED: Midazolam 2mg/2ml Inj IVP PRN (07:00)
[2017-02-10] MEDS ORDERED: fentaNYL 100 mcg/2 mL IV PRN (07:00)
[2017-02-10] MEDS ORDERED: D5NS 1000ml IV ONE (07:00)
[2017-02-10] MEDS ORDERED: Propofol 200mg/20ml IV ONE (07:00)
--- NOTE | 2017-02-10 07:12 | Pre-Procedure Note/Attestation ---
Pre-Procedure Note/Attestation Complete Prior to Procedure Planned Procedure: not applicable Procedure Narrative: egd Indications for Procedure Pre-Operative Diagnosis: GIB Attestation I attest that I discussed the nature of the procedure; its benefits; risks and complications; and alternatives (and the risks and benefits of such alternatives ), prior to the procedure, with the patient (or the patient's legal admissions representative). I attest that, if there was a reasonable possibility of needing a blood transfusion, the patient (or the patient's legal admissions representative) was given the [facility] standardized written summary, pursuant to the Glenn Toño Blood Safety Act ([place] Health and Safety Code # 1645, as amended). I attest that I re-evaluated the patient just prior to the surgery and that there has been no change in the patient's H&P, except as documented below: DAYNA MORRIS Feb 10, 2017 07:12
--- NOTE | 2017-02-10 07:28 | Endoscopy Procedure Note ---
Endoscopy Procedure Note Indication for Procedure: gib Procedures Performed: EGD Operative Findings/Diagnosis: esoph ulcers Specimen: yes Pt Tolerated Procedure Well: Yes Estimated Blood Loss: none Anesthesiologist: jeovanny Anesthesia: MAC Implant(s) used?: No 50 yrs or older w/o bx or poly: Not Applicable 10yrs. F/U not recommended: Not Applicable DAYNA MORRIS Feb 10, 2017 07:28
[2017-02-10 07:29] LABS: BASOPHILS % (AUTO) 0.8 % (0.0-2.0); EOSINOPHILS % (AUTO) 2.8 % (0.0-3.0); LYMPHOCYTES % (AUTO) 14.8 % (20.0-45.0); MEAN CORPUSCULAR HEMOGLOBIN 31.4 PG (27.0-31.0); MEAN CORPUSCULAR HGB CONC 32.2 G/DL (32.0-36.0); MEAN CORPUSCULAR VOLUME 98 FL (80-99); MEAN PLATELET VOLUME 13.7 FL (6.5-10.1); MONOCYTES % (AUTO) 8.5 % (1.0-10.0); PLATELET COUNT 128 K/UL (150-450); RED BLOOD COUNT 2.62 M/UL (4.70-6.10); RED CELL DISTRIBUTION WIDTH 12.8 % (11.6-14.8); WHITE BLOOD COUNT 10.5 K/UL (4.8-10.8)
[2017-02-10 07:37] LABS: INR 1.1 (0.9-1.1)
[2017-02-10] MEDS ORDERED: Fleet's Mineral Oil Enema RECTAL ONE (07:45)
[2017-02-10 07:47] LABS: ALANINE AMINOTRANSFERASE 18 U/L (12-78); ALBUMIN/GLOBULIN RATIO 0.7 (1.0-2.7); AMYLASE 38 U/L (25-115); ANION GAP 7 mmol/L (5-15); ASPARTATE AMINO TRANSFERASE 12 U/L (15-37); CALCIUM 8.6 MG/DL (8.5-10.1); CARBON DIOXIDE 28 MMOL/L (21-32); CHLORIDE 111 MMOL/L (98-107); CREATININE 3.7 MG/DL (0.55-1.30); LIPASE 81 U/L (73-393); POTASSIUM 4.1 MMOL/L (3.5-5.1); SODIUM 145 MMOL/L (136-145); TOTAL PROTEIN 6.9 G/DL (6.4-8.2)
[2017-02-10] MEDS: Sucralfate 1gm tab ORAL SCH ×4 (08:51→21:42)
[2017-02-10] MEDS: Sennosides 8.6mg ORAL SCH (08:51)
[2017-02-10] MEDS: Docusate 100mg cap ORAL SCH ×2 (08:51→18:24)
[2017-02-10] MEDS: Carvedilol 12.5mg tab ORAL SCH ×2 (08:56→21:00)
[2017-02-10] MEDS: HydrALAZINE 25mg tab ORAL SCH ×2 (08:56→21:00)
[2017-02-10] MEDS: Pantoprazole Inj IVP SCH ×2 (08:57→21:00)
--- NOTE | 2017-02-10 11:58 | Immediate Post-Op Evaluation ---
Immediate Post-Op Evalulation Immediate Post-Op Evalulation Procedure: egd Date of Evaluation: Feb 10, 2017 Time of Evaluation: 07:49 IV Fluids: d5/0.9ns 50ml Blood Products: none Estimated Blood Loss: negligible Blood Pressure Systolic: 151 Blood Pressure Diastolic: 74 Pulse Rate: 59 Respiratory Rate: 18 O2 Sat by Pulse Oximetry: 99 Temperature (Fahrenheit): 97.0 Pain Score (1-10): 0 Nausea: No Vomiting: No Complications none Patient Status: awake, reacts, patent Hydration Status: adequate Drug: RONY Mercedes Feb 10, 2017 11:58
--- NOTE | 2017-02-10 12:00 | 48 Hour Post Anesthesia Eval ---
Post Anesthesia Evaluation Procedure: egd Date of Evaluation: Feb 10, 2017 Time of Evaluation: 07:51 Blood Pressure Systolic: 155 0: 77 Pulse Rate: 60 Respiratory Rate: 18 Temperature (Fahrenheit): 97.0 O2 Sat by Pulse Oximetry: 99 Airway: patent Nausea: No Vomiting: No Pain Intensity: 0 Hydration Status: adequate Cardiopulmonary Status: stable Mental Status/LOC: patient returned to baseline Post-Anesthesia Complications: none Follow-up care needed: N/A RONY VALENTINE Feb 10, 2017 12:00
[2017-02-10] MEDS ORDERED: Labetalol 5mg/ml 20ml vial IV PRN (14:15)
[2017-02-10] MEDS ORDERED: Enalaprilat 2.5mg/2ml Inj IV PRN (14:15)
--- NOTE | 2017-02-10 14:46 | Procedure Note ---
DATE OF PROCEDURE: 02/10/2017 SURGEON: Andrés Grady M.D. REFERRING PHYSICIAN: Danial Tran M.D. PROCEDURE: Upper endoscopy with biopsy. ANESTHESIA: Per Dr. Rain. INSTRUMENT: Olympus adult flexible upper endoscope. INDICATION: Upper GI bleeding. The procedure, risks, benefits, and possible consequences, including hemorrhage, aspiration, perforation and infection, and alternative treatments, were explained to the patient/legal guardian by Dr. Andrés Grady and the patient/legal guardian understood and accepted these risks. DESCRIPTION OF PROCEDURE: After informed consent was obtained and the patient was adequately sedated, Olympus upper endoscope was advanced from mouth into the second portion of the duodenum and retroflexion was performed in the stomach. The patient had severe distal esophageal ulcerations. These ulcers were relatively large and deep. Biopsy from these ulcers were obtained. In the stomach, there was diffuse gastritis. Random biopsy from antrum was obtained to rule out H. pylori infection. The patient also had one gastric polyp, which was removed with the cold biopsy forceps technique. The rest of the exam was grossly within normal limit. SUMMARY OF FINDINGS: 1. Distal esophageal ulcerations multiple, status post biopsy. 2. Gastritis, status post biopsy. 3. One gastric polyp removed. RECOMMENDATION: 1. Follow up biopsy results and treat accordingly. 2. Elevate head of the bed at all times. 3. PPI and Carafate. 4. Monitor hemoglobin and hematocrit and transfuse as needed. 5. Start diet. I want to thank Dr. Danial Tran for this kind referral. Andrés Grady M.D. DR: EDGAR JOB#: [id number] CC: Danial Tran M.D.; Fax#: [phone]
[2017-02-10 15:38] LABS: FERRITIN 322 NG/ML (8-388)
[2017-02-10 15:48] LABS: IRON 64 ug/dL (50-175); TOTAL IRON BINDING CAPACITY 170 ug/dL (250-450)
[2017-02-11] VITALS (7 sets, daily range): BP systolic 136–168; BP diastolic 65–79
[2017-02-11] MEDS: NovoLOG Insulin Flexpen SUBQ SCH ×4 (06:54→21:48)
--- NOTE | 2017-02-11 07:51 | Pulmonology Progress Note ---
Assessment/Plan Assessment/Plan ASSESSMENT Symptomatic anemia upper GI bleeding s/p EGD 02/10/ esophageal ulcers HTN DM aspiration risk R BKA dementia prostate Ca PLAN OF CARE tele s/p Protonix gtt s/p 1 L IVF s/p EGD 02/10 with findings of esophageal ulcers PPI, Carafate CT A/P noted Swallow eval diet as per ST as tolerated , monitor HH, transfuse prn with goal to keep Hgb above 8 anemia wup bowel regimen a/emetic prn symptomatic treatment BP management with CCB, BB and Hydralazine, optimize as needed Venous Duplex BLE negative patient with hx of CKD, monitor renal parameters, lytes, correct as needed, avoid nephrotoxic transfer to [facility] floor case discussed and evaluated by supervising physician Subjective Allergies: Coded Allergies: No Known Allergies (Unverified , 02/09/17) Subjective denies CP, SOB dizziness no abdominal pain Objective Last 24 Hour Vital Signs Date Time Temp Pulse Resp B/P (MAP) Pulse Ox O2 Delivery O2 Flow Rate FiO2 02/11/17 06:54 168/78 02/11/17 04:00 97.7 70 18 168/78 100 Nasal Cannula 2.0 02/11/17 04:00 71 02/11/17 00:00 98.6 67 18 149/67 100 Nasal Cannula 2.0 02/11/17 00:00 68 02/10/17 21:00 148/63 02/10/17 21:00 100 148/63 02/10/17 20:15 99.0 74 20 148/63 100 02/10/17 20:00 Nasal Cannula 2.0 02/10/17 20:00 70 02/10/17 16:00 71 02/10/17 16:00 97.9 68 20 150/69 99 02/10/17 15:15 97.5 66 20 150/65 98 Nasal Cannula 2.0 02/10/17 14:49 165/74 02/10/17 12:32 97.7 61 20 168/69 98 02/10/17 12:00 60 18 99 02/10/17 11:58 59 18 99 02/10/17 08:56 160/70 02/10/17 08:45 97.9 59 20 160/70 97 02/10/17 08:00 97.5 60 14 161/68 99 Nasal Cannula 3.0 02/10/17 08:00 71 General Appearance: no acute distress, other - awake, alert responsive AA male HEENT: normocephalic, atraumatic, anicteric Respiratory/Chest: lungs clear, no respiratory distress, no accessory muscle use Cardiovascular: normal rate, regular rhythm - SR on tele Abdomen: normal bowel sounds, soft, non tender Extremities: other - R BKA Neurologic/Psychiatric: abnormal gait, alert, oriented x 3, responsive Current Medications Medications (Trade) Dose Ordered Sig/Thad Route PRN Reason Start Time Stop Time Status Last Admin Dose Admin Acetaminophen (Tylenol) 650 mg Q4H PRN ORAL fever 02/09/17 14:45 03/11/17 14:44 Al Hydroxide/Mg Hydroxide (Mylanta II) 30 ml Q6H PRN ORAL dyspepsia 02/09/17 14:45 03/11/17 14:44 Amlodipine Besylate (Norvasc) 10 mg DAILY ORAL 02/10/17 09:00 03/12/17 08:59 Carvedilol (Coreg) 12.5 mg EVERY 12 HOURS ORAL 02/09/17 21:00 03/11/17 20:59 02/10/17 21:00 Dextrose (Dextrose 50%) STAT PRN IV Hypoglycemia 02/09/17 14:45 03/11/17 14:44 Diphenhydramine HCl (Benadryl) 25 mg Q6H PRN ORAL Itching/Pruritis 02/09/17 14:45 03/11/17 14:44 Docusate Sodium (Colace) 100 mg TWICE A DAY ORAL 02/10/17 09:00 03/12/17 08:59 02/10/17 18:24 Enalaprilat (Vasotec) 2.5 mg Q4H PRN IV sbp more than 200 02/10/17 14:15 03/12/17 14:14 Hydralazine HCl (Apresoline) 20 mg Q4H PRN IV sbp more than 160 02/10/17 14:15 03/12/17 14:14 02/11/17 06:54 Hydralazine HCl (Apresoline) 25 mg EVERY 12 HOURS ORAL 02/09/17 21:00 03/11/17 20:59 02/10/17 21:00 Insulin Aspart (NovoLOG) BEFORE MEALS AND HS SUBQ 02/09/17 22:00 03/11/17 21:59 02/11/17 06:54 Labetalol HCl (Normodyne) 20 mg Q1H PRN IV sbp more than 180 02/10/17 14:15 03/12/17 14:14 Morphine Sulfate (Morphine Sulfate) 2 mg Q4H PRN IVP severe Pain (Pain Scale 7-10) 02/09/17 14:45 02/16/17 14:44 Nitroglycerin (Ntg) 0.4 mg Q5M X 3 DOSES PRN SL Prn Chest Pain 02/09/17 14:45 03/11/17 14:44 Ondansetron HCl (Zofran) 4 mg Q6H PRN IVP Nausea & Vomiting 02/09/17 14:45 03/11/17 14:44 02/09/17 21:35 Pantoprazole (Protonix) 40 mg EVERY 12 HOURS IVP 02/10/17 09:00 03/12/17 08:59 02/10/17 21:00 Polyethylene Glycol (Miralax) 17 gm HSPRN PRN ORAL Constipation 1st line Agent 02/09/17 14:45 03/11/17 14:44 Sennosides (Senokot) 17.2 mg DAILY ORAL 02/10/17 09:00 03/12/17 08:59 02/10/17 08:51 Sucralfate (Carafate) 1 gm FOUR TIMES A DAY ORAL 02/10/17 09:00 03/12/17 08:59 02/10/17 21:42 Temazepam (Restoril) 15 mg HSPRN PRN ORAL Insomnia 02/09/17 14:45 02/16/17 14:44 Susan Brown NP (Vanchtein) Feb 11, 2017 07:51
[2017-02-11 08:34] LABS: BASOPHILS % (AUTO) 0.9 % (0.0-2.0); EOSINOPHILS % (AUTO) 3.3 % (0.0-3.0); LYMPHOCYTES % (AUTO) 17.4 % (20.0-45.0); MEAN CORPUSCULAR HEMOGLOBIN 30.2 PG (27.0-31.0); MEAN CORPUSCULAR HGB CONC 30.8 G/DL (32.0-36.0); MEAN CORPUSCULAR VOLUME 98 FL (80-99); MEAN PLATELET VOLUME 12.5 FL (6.5-10.1); NEUTROPHILS % (AUTO) 69.4 % (45.0-75.0); PLATELET COUNT 145 K/UL (150-450); RED BLOOD COUNT 2.86 M/UL (4.70-6.10); WHITE BLOOD COUNT 9.7 K/UL (4.8-10.8)
[2017-02-11 08:46] LABS: ANION GAP 7 mmol/L (5-15); CARBON DIOXIDE 27 MMOL/L (21-32); CHLORIDE 114 MMOL/L (98-107); CREATININE 3.6 MG/DL (0.55-1.30); SODIUM 148 MMOL/L (136-145)
[2017-02-11] MEDS: HydrALAZINE 25mg tab ORAL SCH ×2 (08:58→21:16)
[2017-02-11] MEDS: Sennosides 8.6mg ORAL SCH (08:58)
[2017-02-11] MEDS: Carvedilol 12.5mg tab ORAL SCH ×2 (08:59→21:17)
[2017-02-11] MEDS: Docusate 100mg cap ORAL SCH ×2 (08:59→17:43)
[2017-02-11] MEDS: Pantoprazole Inj IVP SCH ×2 (09:06→21:17)
[2017-02-11] MEDS: Sucralfate 1gm tab ORAL SCH ×4 (09:07→21:16)
--- NOTE | 2017-02-11 10:49 | GI Progress Note ---
Assessment/Plan Problems: (1) Hematemesis ICD Codes: K92.0 - Hematemesis SNOMED: 1291079 Qualifiers: Qualified Codes: K92.0 - Hematemesis (2) Dementia ICD Codes: F03.90 - Unspecified dementia without behavioral disturbance SNOMED: 26367371 (3) Symptomatic anemia ICD Codes: D64.9 - Anemia, unspecified SNOMED: 982455478 (4) Diabetes mellitus ICD Codes: E11.9 - Type 2 diabetes mellitus without complications SNOMED: 51813525 (5) Hx of right BKA ICD Codes: Z89.511 - Acquired absence of right leg below knee SNOMED: 600170439, 623697545, 574740399 Status: progressing Status Narrative Discussed with Dr. Grady. Assessment/Plan s/p EGD SUMMARY OF FINDINGS: 1. Distal esophageal ulcerations multiple, status post biopsy. 2. Gastritis, status post biopsy. 3. One gastric polyp removed. RECOMMENDATION: Follow up biopsy results and treat accordingly. Elevate head of the bed at all times. PPI and Carafate. Monitor hemoglobin and hematocrit and transfuse as needed. Start diet. bowel regime >> colace + miralax, mineral oil prn fu labs The patient was seen and examined at bedside and all new and available data was reviewed in the patients chart. I agree with the above findings, impression and plan. (Patient seen earlier today. Signature stamp does not reflect patient encounter time.). - Brant Grady MD Subjective Subjective feels better still constipated Objective Last 24 Hour Vital Signs Date Time Temp Pulse Resp B/P (MAP) Pulse Ox O2 Delivery O2 Flow Rate FiO2 02/11/17 08:59 65 138/69 02/11/17 08:58 138/69 02/11/17 08:58 65 138/69 02/11/17 08:00 97.0 65 21 138/69 98 02/11/17 06:54 168/78 02/11/17 04:00 97.7 70 18 168/78 100 Nasal Cannula 2.0 02/11/17 04:00 71 02/11/17 00:00 98.6 67 18 149/67 100 Nasal Cannula 2.0 02/11/17 00:00 68 02/10/17 21:00 148/63 02/10/17 21:00 100 148/63 02/10/17 20:15 99.0 74 20 148/63 100 02/10/17 20:00 Nasal Cannula 2.0 02/10/17 20:00 70 02/10/17 16:00 71 02/10/17 16:00 97.9 68 20 150/69 99 02/10/17 15:15 97.5 66 20 150/65 98 Nasal Cannula 2.0 02/10/17 14:49 165/74 02/10/17 12:32 97.7 61 20 168/69 98 02/10/17 12:00 60 18 99 02/10/17 11:58 59 18 99 Laboratory Tests Test 02/11/17 08:05 White Blood Count 9.7 K/UL (4.8-10.8) Red Blood Count 2.86 M/UL (4.70-6.10) L Hemoglobin 8.7 G/DL (14.2-18.0) L Hematocrit 28.1 % (42.0-52.0) L Mean Corpuscular Volume 98 FL (80-99) Mean Corpuscular Hemoglobin 30.2 PG (27.0-31.0) Mean Corpuscular Hemoglobin Concent 30.8 G/DL (32.0-36.0) L Red Cell Distribution Width 13.0 % (11.6-14.8) Platelet Count 145 K/UL (150-450) L Mean Platelet Volume 12.5 FL (6.5-10.1) H Neutrophils (%) (Auto) 69.4 % (45.0-75.0) Lymphocytes (%) (Auto) 17.4 % (20.0-45.0) L Monocytes (%) (Auto) 9.0 % (1.0-10.0) Eosinophils (%) (Auto) 3.3 % (0.0-3.0) H Basophils (%) (Auto) 0.9 % (0.0-2.0) Sodium Level 148 MMOL/L (136-145) H Potassium Level 4.0 MMOL/L (3.5-5.1) Chloride Level 114 MMOL/L (98-107) H Carbon Dioxide Level 27 MMOL/L (21-32) Anion Gap 7 mmol/L (5-15) Blood Urea Nitrogen 46 mg/dL (7-18) H Creatinine 3.6 MG/DL (0.55-1.30) H Estimat Glomerular Filtration Rate mL/min (>60) Glucose Level 153 MG/DL (74-106) #H Calcium Level 9.0 MG/DL (8.5-10.1) Height (Feet): 5 Height (Inches): 8.00 Weight (Pounds): 170 General Appearance: WD/WN, no apparent distress, alert, other - blind Cardiovascular: normal rate Respiratory/Chest: normal breath sounds, no respiratory distress Abdominal Exam: normal bowel sounds, non tender, soft Extremities: non-tender May Scales NDevika Feb 11, 2017 10:49 DAYNA GRADY Feb 14, 2017 08:55
[2017-02-11] MEDS ORDERED: Mineral Oil 30ml ud ORAL PRN (11:00)
[2017-02-11 13:10] LABS: HEMATOCRIT 26.8 % (37.5-51.0)
--- NOTE | 2017-02-11 20:40 | History & Physical ---
History and Physical History & Physicial job # [id number] Danial Tran MD Feb 11, 2017 20:40
[2017-02-12] VITALS (7 sets, daily range): BP systolic 140–162; BP diastolic 67–81
[2017-02-12] MEDS: NovoLOG Insulin Flexpen SUBQ SCH ×4 (06:31→21:11)
[2017-02-12] MEDS ORDERED: Morphine Sulfate 2mg/ml Inj IVP PRN (08:00)
[2017-02-12] MEDS ORDERED: Mylanta II UD 30ml ORAL PRN (08:00)
[2017-02-12] MEDS ORDERED: Nitroglycerin Subl 0.4mg tab SL PRN (08:00)
[2017-02-12] MEDS ORDERED: Enalaprilat 2.5mg/2ml Inj IV PRN (08:00)
[2017-02-12 08:14] LABS: BASOPHILS % (AUTO) 0.6 % (0.0-2.0); EOSINOPHILS % (AUTO) 3.8 % (0.0-3.0); LYMPHOCYTES % (AUTO) 20.6 % (20.0-45.0); MEAN CORPUSCULAR HEMOGLOBIN 31.7 PG (27.0-31.0); MEAN CORPUSCULAR HGB CONC 32.3 G/DL (32.0-36.0); MEAN CORPUSCULAR VOLUME 98 FL (80-99); MEAN PLATELET VOLUME 12.8 FL (6.5-10.1); MONOCYTES % (AUTO) 10.1 % (1.0-10.0); NEUTROPHILS % (AUTO) 64.9 % (45.0-75.0); PLATELET COUNT 128 K/UL (150-450); RED BLOOD COUNT 2.63 M/UL (4.70-6.10); RED CELL DISTRIBUTION WIDTH 12.7 % (11.6-14.8); WHITE BLOOD COUNT 8.8 K/UL (4.8-10.8)
[2017-02-12] MEDS ORDERED: Labetalol 5mg/ml 20ml vial IV PRN (08:15)
[2017-02-12] MEDS: Sucralfate 1gm tab ORAL SCH ×4 (08:35→20:53)
[2017-02-12] MEDS: Carvedilol 12.5mg tab ORAL SCH ×2 (08:35→20:55)
[2017-02-12] MEDS: Sennosides 8.6mg ORAL SCH (08:35)
[2017-02-12] MEDS: Docusate 100mg cap ORAL SCH ×2 (08:35→17:24)
[2017-02-12] MEDS: Pantoprazole Inj IVP SCH ×2 (08:36→20:53)
[2017-02-12] MEDS: HydrALAZINE 25mg tab ORAL SCH ×2 (08:36→20:55)
[2017-02-12] MEDS ORDERED: Mineral Oil 30ml ud ORAL PRN (09:00)
[2017-02-12 09:05] LABS: ANION GAP 6 mmol/L (5-15); CALCIUM 8.7 MG/DL (8.5-10.1); CARBON DIOXIDE 27 MMOL/L (21-32); CHLORIDE 115 MMOL/L (98-107); CREATININE 3.3 MG/DL (0.55-1.30); POTASSIUM 4.2 MMOL/L (3.5-5.1); SODIUM 148 MMOL/L (136-145)
--- NOTE | 2017-02-12 10:05 | Pulmonology Progress Note ---
Assessment/Plan Assessment/Plan ASSESSMENT Symptomatic anemia upper GI bleeding s/p EGD 02/10/ esophageal ulcers HTN DM aspiration risk R BKA dementia prostate Ca PLAN OF CARE [facility] floor s/p Protonix gtt s/p 1 L IVF s/p EGD 02/10 with findings of esophageal ulcers PPI, Carafate CT A/P noted Swallow eval noted diet as per ST as tolerated , monitor HH, transfuse prn with goal to keep Hgb above 8 , at baseline anemia wup with stable iron bowel regimen a/emetic prn symptomatic treatment BP management with CCB, BB and Hydralazine, optimize as needed Venous Duplex BLE negative patient with hx of CKD, monitor renal parameters, lytes, correct as needed, avoid nephrotoxic, creat slightly down case discussed and evaluated by supervising physician Subjective Allergies: Coded Allergies: No Known Allergies (Unverified , 02/09/17) Subjective denies CP, SOB dizziness no abdominal pain Objective Last 24 Hour Vital Signs Date Time Temp Pulse Resp B/P (MAP) Pulse Ox O2 Delivery O2 Flow Rate FiO2 02/12/17 09:44 140/76 02/12/17 08:36 162/77 02/12/17 08:36 72 162/77 02/12/17 08:35 72 162/77 02/12/17 08:05 98.2 72 18 162/77 98 Room Air 02/12/17 04:00 98.2 72 16 146/81 100 Nasal Cannula 2.0 02/12/17 00:00 98.6 69 18 151/74 99 Nasal Cannula 2.0 02/11/17 21:17 74 154/74 02/11/17 21:16 154/74 02/11/17 19:40 98.4 74 19 152/72 98 Nasal Cannula 2.0 02/11/17 19:28 97.7 77 18 137/65 100 02/11/17 16:00 71 02/11/17 16:00 97.9 69 21 146/79 98 02/11/17 12:00 97.8 70 21 136/68 99 02/11/17 12:00 68 Intake and Output 02/12/17 02/13/17 19:00 07:00 Intake Total 240 ml Balance 240 ml Intake Oral 240 ml Objective General Appearance: no acute distress, other - awake, alert responsive AA male HEENT: normocephalic, atraumatic, anicteric Respiratory/Chest: lungs clear, no respiratory distress, no accessory muscle use Cardiovascular: normal rate, regular rhythm - SR on tele Abdomen: normal bowel sounds, soft, non tender Extremities: other - R BKA Neurologic/Psychiatric: abnormal gait, alert, oriented x 3, responsive Laboratory Tests 02/12/17 05:05: White Blood Count 8.8, Red Blood Count 2.63L, Hemoglobin 8.3L, Hematocrit 25.8L , Mean Corpuscular Volume 98, Mean Corpuscular Hemoglobin 31.7H, Mean Corpuscular Hemoglobin Concent 32.3, Red Cell Distribution Width 12.7, Platelet Count 128L, Mean Platelet Volume 12.8H, Neutrophils (%) (Auto) 64.9, Lymphocytes (%) (Auto) 20.6, Monocytes (%) (Auto) 10.1H, Eosinophils (%) (Auto) 3.8H, Basophils (%) (Auto) 0.6, Sodium Level 148H, Potassium Level 4.2, Chloride Level 115H, Carbon Dioxide Level 27, Anion Gap 6, Blood Urea Nitrogen 40H, Creatinine 3.3H, Estimat Glomerular Filtration Rate , Glucose Level 132H, Calcium Level 8.7 Current Medications Medications (Trade) Dose Ordered Sig/Thad Route PRN Reason Start Time Stop Time Status Last Admin Dose Admin Acetaminophen (Tylenol) 650 mg Q4H PRN ORAL FEVER>100.5 02/12/17 08:00 03/11/17 07:59 Al Hydroxide/Mg Hydroxide (Mylanta II) 30 ml Q6H PRN ORAL dyspepsia 02/12/17 08:00 03/11/17 07:59 Amlodipine Besylate (Norvasc) 10 mg DAILY ORAL 02/12/17 09:00 03/12/17 08:59 02/12/17 08:36 Carvedilol (Coreg) 12.5 mg EVERY 12 HOURS ORAL 02/12/17 09:00 03/11/17 20:59 02/12/17 08:35 Dextrose (Dextrose 50%) STAT PRN IV Hypoglycemia 02/12/17 08:00 03/11/17 07:59 Diphenhydramine HCl (Benadryl) 25 mg Q6H PRN ORAL Itching/Pruritis 02/12/17 08:00 1/12/18 07:59 Docusate Sodium (Colace) 100 mg TWICE A DAY ORAL 02/12/17 09:00 03/12/17 08:59 02/12/17 08:35 Enalaprilat (Vasotec) 2.5 mg Q4H PRN IV sbp more than 200 02/12/17 08:00 03/12/17 07:59 Hydralazine HCl (Apresoline) 25 mg EVERY 12 HOURS ORAL 02/12/17 09:00 03/11/17 20:59 02/12/17 08:36 Insulin Aspart (NovoLOG) BEFORE MEALS AND HS SUBQ 02/12/17 11:30 03/11/17 21:59 Mineral Oil (Mineral Oil) 30 ml DAILY PRN ORAL Constipation 02/12/17 09:00 03/13/17 10:59 Morphine Sulfate (Morphine Sulfate) 2 mg Q4H PRN IVP severe Pain (Pain Scale 7-10) 02/12/17 08:00 02/16/17 07:59 Nitroglycerin (Ntg) 0.4 mg Q5M X 3 DOSES PRN SL Prn Chest Pain 02/12/17 08:00 03/11/17 07:59 Ondansetron HCl (Zofran) 4 mg Q6H PRN IVP Nausea & Vomiting 02/12/17 08:00 03/11/17 07:59 Pantoprazole (Protonix) 40 mg EVERY 12 HOURS IVP 02/12/17 09:00 03/12/17 08:59 02/12/17 08:36 Polyethylene Glycol (Miralax) 17 gm HSPRN PRN ORAL Constipation 1st line Agent 02/12/17 21:00 03/11/17 20:59 Sennosides (Senokot) 17.2 mg DAILY ORAL 02/12/17 09:00 03/12/17 08:59 02/12/17 08:35 Sucralfate (Carafate) 1 gm FOUR TIMES A DAY ORAL 02/12/17 09:00 03/12/17 08:59 02/12/17 08:35 Temazepam (Restoril) 15 mg HSPRN PRN ORAL Insomnia 02/12/17 21:00 02/16/17 20:59 Susan Brown NP (Vanchtein) Feb 12, 2017 10:05
--- NOTE | 2017-02-12 11:00 | History and Physical Report ---
DATE OF ADMISSION: 02/09/2017 CHIEF COMPLAINT: Nausea and vomiting blood. HISTORY OF PRESENT ILLNESS: This is a 72 years old gentleman with past medical history significant for coronary artery disease, dyslipidemia, PTSD, anemia of chronic disease, prostate cancer, dementia, hypertension, congestive heart failure, status post right BKA, who has presented to the hospital from nursing facility after he was noted to have vomiting blood. History is very limited secondary to the patient's history of dementia and poor historian. The patient is residing in [facility] and per daughter, the patient started having the vomiting two weeks ago since admission to [facility] and has been having constipation relieved with enema, history of small bowel obstruction previously as well as upper gastrointestinal bleed. The patient shortly after initial evaluation in the emergency room was admitted to the hospital with acute gastrointestinal bleed most likely upper gastrointestinal bleed. PAST MEDICAL HISTORY/PAST SURGICAL HISTORY: As above, history of coronary artery disease, PTSD, history of anemia, prostate cancer, dementia, hypertension, congestive heart failure, and right BKA. MEDICATIONS: Senna, prednisolone eye drops, Xalatan eye drops, isosorbide mononitrate, hydralazine, , Plavix, vitamin D, Coreg, , Alphagan, atropine sulfate eye drops. The patient is on atorvastatin, aspirin, as well as Norvasc. ALLERGIES: No known drug allergies. SOCIAL HISTORY: No smoking, alcohol, or drugs at this time. [facility] resident. FAMILY HISTORY: Noncontributory. REVIEW OF SYSTEMS: Very limited secondary to the patient's status. The patient denies any chest pain or shortness of breath. Complained about vomiting. Denies any hemoptysis or hematochezia. The patient is legally blind. PHYSICAL EXAMINATION: HEENT: The patient is legally blind. EXTREMITIES: The right foot has BKA. LABORATORY AND DIAGNOSTIC DATA: Laboratory on admission, WBC of 11.4, hemoglobin 8.4, hematocrit 28, and platelets 125. Sodium 142, potassium 4.2, chloride 107, bicarbonate 27, BUN 69, creatinine 4.0, and glucose is 388. Total bilirubin of 0.4, AST of 11, and AST of 15. Folate is 1315. The patient had a CT of the abdomen and pelvis done shows evidence of prior prostatectomy, gallbladder wall thickening, which could be indicative of cystitis or chronic bladder obstruction, pericardial effusion, cardiomegaly, limited assessment due to the gastrointestinal tract, given the lack of the enteric contrast, mild distention of the rectum, and feces with mild thickening of the wall. ASSESSMENT: 1. Acute gastrointestinal bleed, most likely upper gastrointestinal bleed. 2. Chronic constipation. 3. Dementia. 4. Symptomatic anemia, most likely acute gastrointestinal bleed due to acute blood loss. 5. History of right below-knee amputation. 6. Hypertension. PLAN: Admit the patient to telemetry. We will follow up with Dr. Grady's recommendation for EGD. We will resume [facility] medications except aspirin. NPO after midnight. Code Status is Full Code. Danial Tran M.D. DR: Malu JOB#: [id number] CC:
--- NOTE | 2017-02-12 15:14 | Internal Med Progress Note ---
Subjective Date of Service: Feb 12, 2017 Physician Name Reymundo Hess Attending Physician Danial Tran MD Current Medications Medications (Trade) Dose Ordered Sig/Thad Route PRN Reason Start Time Stop Time Status Last Admin Dose Admin Acetaminophen (Tylenol) 650 mg Q4H PRN ORAL FEVER>100.5 02/12/17 08:00 03/11/17 07:59 Al Hydroxide/Mg Hydroxide (Mylanta II) 30 ml Q6H PRN ORAL dyspepsia 02/12/17 08:00 03/11/17 07:59 Amlodipine Besylate (Norvasc) 10 mg DAILY ORAL 02/12/17 09:00 03/12/17 08:59 02/12/17 08:36 Carvedilol (Coreg) 12.5 mg EVERY 12 HOURS ORAL 02/12/17 09:00 03/11/17 20:59 02/12/17 08:35 Dextrose (Dextrose 50%) STAT PRN IV Hypoglycemia 02/12/17 08:00 03/11/17 07:59 Diphenhydramine HCl (Benadryl) 25 mg Q6H PRN ORAL Itching/Pruritis 02/12/17 08:00 03/11/17 07:59 Docusate Sodium (Colace) 100 mg TWICE A DAY ORAL 02/12/17 09:00 03/12/17 08:59 02/12/17 08:35 Enalaprilat (Vasotec) 2.5 mg Q4H PRN IV sbp more than 200 02/12/17 08:00 03/12/17 07:59 Hydralazine HCl (Apresoline) 25 mg EVERY 12 HOURS ORAL 02/12/17 09:00 03/11/17 20:59 02/12/17 08:36 Insulin Aspart (NovoLOG) BEFORE MEALS AND HS SUBQ 02/12/17 11:30 03/11/17 21:59 02/12/17 12:10 Mineral Oil (Mineral Oil) 30 ml DAILY PRN ORAL Constipation 02/12/17 09:00 03/13/17 10:59 Morphine Sulfate (Morphine Sulfate) 2 mg Q4H PRN IVP severe Pain (Pain Scale 7-10) 02/12/17 08:00 02/16/17 07:59 Nitroglycerin (Ntg) 0.4 mg Q5M X 3 DOSES PRN SL Prn Chest Pain 02/12/17 08:00 03/11/17 07:59 Ondansetron HCl (Zofran) 4 mg Q6H PRN IVP Nausea & Vomiting 02/12/17 08:00 03/11/17 07:59 Pantoprazole (Protonix) 40 mg EVERY 12 HOURS IVP 02/12/17 09:00 03/12/17 08:59 02/12/17 08:36 Polyethylene Glycol (Miralax) 17 gm HSPRN PRN ORAL Constipation 1st line Agent 02/12/17 21:00 03/11/17 20:59 Sennosides (Senokot) 17.2 mg DAILY ORAL 02/12/17 09:00 03/12/17 08:59 02/12/17 08:35 Sucralfate (Carafate) 1 gm FOUR TIMES A DAY ORAL 02/12/17 09:00 03/12/17 08:59 02/12/17 13:28 Temazepam (Restoril) 15 mg HSPRN PRN ORAL Insomnia 02/12/17 21:00 02/16/17 20:59 Allergies: Coded Allergies: No Known Allergies (Unverified , 02/09/17) ROS Limited/Unobtainable: Yes Subjective 72 YO M admitted with chief complaint of GI bleed. Cover for Int Med-Dr Tran. Objective Last Vital Signs Date Time Temp Pulse Resp B/P (MAP) Pulse Ox O2 Delivery O2 Flow Rate FiO2 02/12/17 12:00 97.5 63 18 157/70 99 Room Air 02/12/17 04:00 2.0 General Appearance: WD/WN, alert, mild distress EENT: normal ENT inspection Neck: non-tender, normal alignment, supple Cardiovascular: normal peripheral pulses, normal rate, regular rhythm, no gallop/murmur, no JVD Respiratory/Chest: chest wall non-tender, lungs clear, normal breath sounds, no respiratory distress, no accessory muscle use Abdomen: no organomegaly, no mass, decreased bowel sounds, tender Extremities: normal range of motion Neurologic: setter cold 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-XII grossly normal Skin: normal pigmentation Laboratory Tests Test 02/12/17 05:05 White Blood Count 8.8 K/UL (4.8-10.8) Red Blood Count 2.63 M/UL (4.70-6.10) L Hemoglobin 8.3 G/DL (14.2-18.0) L Hematocrit 25.8 % (42.0-52.0) L Mean Corpuscular Volume 98 FL (80-99) Mean Corpuscular Hemoglobin 31.7 PG (27.0-31.0) H Mean Corpuscular Hemoglobin Concent 32.3 G/DL (32.0-36.0) Red Cell Distribution Width 12.7 % (11.6-14.8) Platelet Count 128 K/UL (150-450) L Mean Platelet Volume 12.8 FL (6.5-10.1) H Neutrophils (%) (Auto) 64.9 % (45.0-75.0) Lymphocytes (%) (Auto) 20.6 % (20.0-45.0) Monocytes (%) (Auto) 10.1 % (1.0-10.0) H Eosinophils (%) (Auto) 3.8 % (0.0-3.0) H Basophils (%) (Auto) 0.6 % (0.0-2.0) Sodium Level 148 MMOL/L (136-145) H Potassium Level 4.2 MMOL/L (3.5-5.1) Chloride Level 115 MMOL/L (98-107) H Carbon Dioxide Level 27 MMOL/L (21-32) Anion Gap 6 mmol/L (5-15) Blood Urea Nitrogen 40 mg/dL (7-18) H Creatinine 3.3 MG/DL (0.55-1.30) H Estimat Glomerular Filtration Rate mL/min (>60) Glucose Level 132 MG/DL (74-106) H Calcium Level 8.7 MG/DL (8.5-10.1) Intake and Output 02/12/17 02/13/17 19:00 07:00 Intake Total 480 ml Balance 480 ml Intake Oral 480 ml Assessment/Plan Assessment/Plan 1. Acute gastrointestinal bleed, most likely upper gastrointestinal bleed. 2. Chronic constipation. 3. Dementia. 4. Symptomatic anemia, most likely acute gastrointestinal bleed due to acute blood loss. 5. History of right below-knee amputation. 6. Hypertension. PLAN: Admit the patient to telemetry. We will follow up with Dr. Grady's recommendation for EGD. We will resume senior living medications except aspirin. NPO after midnight. Code Status is Full Code. REYMUNDO HESS Feb 12, 2017 15:14
--- NOTE | 2017-02-12 17:04 | General Progress Note ---
Assessment/Plan Assessment/Plan Assessment - UGIB - esophageal ulcers - OBS - Anemia - PVD - DM Recommendations - PPI - Push PO - Elevate HOB - Monitor CBC Subjective Allergies: Coded Allergies: No Known Allergies (Unverified , 02/09/17) Subjective no events overnight no complaints Objective Last 24 Hour Vital Signs Date Time Temp Pulse Resp B/P (MAP) Pulse Ox O2 Delivery O2 Flow Rate FiO2 02/12/17 16:02 98.2 76 18 141/67 99 Nasal Cannula 2.0 02/12/17 12:00 97.5 63 18 157/70 99 Room Air 02/12/17 09:44 140/76 02/12/17 08:36 162/77 02/12/17 08:36 72 162/77 02/12/17 08:35 72 162/77 02/12/17 08:05 98.2 72 18 162/77 98 Room Air 02/12/17 04:00 98.2 72 16 146/81 100 Nasal Cannula 2.0 02/12/17 00:00 98.6 69 18 151/74 99 Nasal Cannula 2.0 02/11/17 21:17 74 154/74 02/11/17 21:16 154/74 02/11/17 19:40 98.4 74 19 152/72 98 Nasal Cannula 2.0 02/11/17 19:28 97.7 77 18 137/65 100 Intake and Output 02/12/17 02/13/17 19:00 07:00 Intake Total 480 ml Balance 480 ml Intake Oral 480 ml Laboratory Tests 02/12/17 05:05: White Blood Count 8.8, Red Blood Count 2.63L, Hemoglobin 8.3L, Hematocrit 25.8L , Mean Corpuscular Volume 98, Mean Corpuscular Hemoglobin 31.7H, Mean Corpuscular Hemoglobin Concent 32.3, Red Cell Distribution Width 12.7, Platelet Count 128L, Mean Platelet Volume 12.8H, Neutrophils (%) (Auto) 64.9, Lymphocytes (%) (Auto) 20.6, Monocytes (%) (Auto) 10.1H, Eosinophils (%) (Auto) 3.8H, Basophils (%) (Auto) 0.6, Sodium Level 148H, Potassium Level 4.2, Chloride Level 115H, Carbon Dioxide Level 27, Anion Gap 6, Blood Urea Nitrogen 40H, Creatinine 3.3H, Estimat Glomerular Filtration Rate , Glucose Level 132H, Calcium Level 8.7 Height (Feet): 5 Height (Inches): 8.00 Weight (Pounds): 170 Objective elderly AA man NCAT supple CTA RRR soft ND NT (+) Right NATALIA RICHARDS Feb 12, 2017 17:04
[2017-02-12] MEDS ORDERED: Miralax 17gm pkt ORAL PRN (21:00)
[2017-02-13] VITALS: BP 149/82
[2017-02-13 04:00] VITALS: BP 161/81
[2017-02-13] MEDS: NovoLOG Insulin Flexpen SUBQ SCH ×4 (06:50→20:52)
[2017-02-13 07:55] LABS: BASOPHILS % (AUTO) 0.7 % (0.0-2.0); EOSINOPHILS % (AUTO) 3.6 % (0.0-3.0); LYMPHOCYTES % (AUTO) 18.4 % (20.0-45.0); MEAN CORPUSCULAR HEMOGLOBIN 30.2 PG (27.0-31.0); MEAN CORPUSCULAR HGB CONC 30.7 G/DL (32.0-36.0); MEAN CORPUSCULAR VOLUME 98 FL (80-99); MEAN PLATELET VOLUME 12.3 FL (6.5-10.1); MONOCYTES % (AUTO) 9.9 % (1.0-10.0); NEUTROPHILS % (AUTO) 67.4 % (45.0-75.0); PLATELET COUNT 122 K/UL (150-450); RED BLOOD COUNT 2.74 M/UL (4.70-6.10); RED CELL DISTRIBUTION WIDTH 12.4 % (11.6-14.8); WHITE BLOOD COUNT 9.1 K/UL (4.8-10.8)
[2017-02-13 08:00] VITALS: BP 154/81
[2017-02-13 08:02] LABS: ANION GAP 6 mmol/L (5-15); CALCIUM 8.6 MG/DL (8.5-10.1); CARBON DIOXIDE 28 MMOL/L (21-32); CHLORIDE 111 MMOL/L (98-107); CREATININE 3.1 MG/DL (0.55-1.30); POTASSIUM 4.3 MMOL/L (3.5-5.1); SODIUM 145 MMOL/L (136-145)
[2017-02-13] MEDS: Sucralfate 1gm tab ORAL SCH ×4 (08:42→20:46)
[2017-02-13] MEDS: Sennosides 8.6mg ORAL SCH (08:43)
[2017-02-13] MEDS: HydrALAZINE 25mg tab ORAL SCH ×2 (08:43→20:46)
[2017-02-13] MEDS: Pantoprazole Inj IVP SCH ×2 (08:44→20:46)
[2017-02-13] MEDS: Carvedilol 12.5mg tab ORAL SCH ×2 (08:44→20:46)
[2017-02-13] MEDS: Docusate 100mg cap ORAL SCH ×2 (08:44→17:17)
--- NOTE | 2017-02-13 09:19 | Pulmonology Progress Note ---
Assessment/Plan Assessment/Plan ASSESSMENT Symptomatic anemia upper GI bleeding s/p EGD 02/10/ esophageal ulcers HTN DM aspiration risk moderate dysphagia R BKA dementia prostate Ca PLAN OF CARE MS floor s/p Protonix gtt s/p EGD 02/10 with findings of esophageal ulcers PPI, Carafate CT A/P noted Swallow eval noted with moderate dysphagia diet as per ST recommendations as tolerated strict aspiration/reflux precautions monitor HH, transfuse prn with goal to keep Hgb above 8 , HH stay at baseline anemia wup with stable iron bowel regimen a/emetic prn s/p 1 L IVF, creat down to 3.1 patient with hx of CKD, monitor renal parameters, lytes, correct as needed, avoid nephrotoxic, symptomatic treatment BP management with CCB, BB and Hydralazine, optimize as needed Venous Duplex BLE negative case discussed and evaluated by supervising physician Subjective Allergies: Coded Allergies: No Known Allergies (Unverified , 02/09/17) Subjective denies CP, SOB dizziness no abdominal pain Objective Last 24 Hour Vital Signs Date Time Temp Pulse Resp B/P (MAP) Pulse Ox O2 Delivery O2 Flow Rate FiO2 02/13/17 08:44 73 154/81 02/13/17 08:43 154/81 02/13/17 08:43 73 154/81 02/13/17 08:00 98.0 73 18 154/81 100 Nasal Cannula 2.0 02/13/17 04:00 98.3 70 18 161/81 100 Room Air 02/13/17 00:00 98.2 70 19 149/82 100 02/12/17 20:55 157/79 02/12/17 20:55 70 157/79 02/12/17 20:00 97.6 70 18 157/79 100 02/12/17 16:02 98.2 76 18 141/67 99 Nasal Cannula 2.0 02/12/17 12:00 97.5 63 18 157/70 99 Room Air 02/12/17 09:44 140/76 Objective General Appearance: no acute distress, awake, alert responsive AA male HEENT: normocephalic, atraumatic, anicteric Respiratory/Chest: lungs clear, no respiratory distress, no accessory muscle use Cardiovascular: normal rate, S1S2 , no murmurs Abdomen: normal bowel sounds, soft, non tender Extremities: other - R BKA Neurologic/Psychiatric: abnormal gait, alert, oriented x 3, responsive Laboratory Tests 02/13/17 07:05: White Blood Count 9.1, Red Blood Count 2.74L, Hemoglobin 8.3L, Hematocrit 26.9L , Mean Corpuscular Volume 98, Mean Corpuscular Hemoglobin 30.2, Mean Corpuscular Hemoglobin Concent 30.7L, Red Cell Distribution Width 12.4, Platelet Count 122L, Mean Platelet Volume 12.3H, Neutrophils (%) (Auto) 67.4, Lymphocytes (%) (Auto) 18.4L, Monocytes (%) (Auto) 9.9, Eosinophils (%) (Auto) 3.6H, Basophils (%) (Auto) 0.7, Sodium Level 145, Potassium Level 4.3, Chloride Level 111H, Carbon Dioxide Level 28, Anion Gap 6, Blood Urea Nitrogen 35H, Creatinine 3.1H, Estimat Glomerular Filtration Rate , Glucose Level 123H, Calcium Level 8.6 Current Medications Medications (Trade) Dose Ordered Sig/Thad Route PRN Reason Start Time Stop Time Status Last Admin Dose Admin Acetaminophen (Tylenol) 650 mg Q4H PRN ORAL FEVER>100.5 02/12/17 08:00 03/11/17 07:59 Al Hydroxide/Mg Hydroxide (Mylanta II) 30 ml Q6H PRN ORAL dyspepsia 02/12/17 08:00 03/11/17 07:59 Amlodipine Besylate (Norvasc) 10 mg DAILY ORAL 02/12/17 09:00 03/12/17 08:59 02/13/17 08:43 Carvedilol (Coreg) 12.5 mg EVERY 12 HOURS ORAL 02/12/17 09:00 03/11/17 20:59 02/13/17 08:44 Dextrose (Dextrose 50%) STAT PRN IV Hypoglycemia 02/12/17 08:00 03/11/17 07:59 Diphenhydramine HCl (Benadryl) 25 mg Q6H PRN ORAL Itching/Pruritis 02/12/17 08:00 03/11/17 07:59 Docusate Sodium (Colace) 100 mg TWICE A DAY ORAL 02/12/17 09:00 03/12/17 08:59 02/13/17 08:44 Enalaprilat (Vasotec) 2.5 mg Q4H PRN IV sbp more than 200 02/12/17 08:00 03/12/17 07:59 Hydralazine HCl (Apresoline) 25 mg EVERY 12 HOURS ORAL 02/12/17 09:00 03/11/17 20:59 02/13/17 08:43 Insulin Aspart (NovoLOG) BEFORE MEALS AND HS SUBQ 02/12/17 11:30 03/11/17 21:59 02/13/17 06:50 Mineral Oil (Mineral Oil) 30 ml DAILY PRN ORAL Constipation 02/12/17 09:00 03/13/17 10:59 Morphine Sulfate (Morphine Sulfate) 2 mg Q4H PRN IVP severe Pain (Pain Scale 7-10) 02/12/17 08:00 02/16/17 07:59 Nitroglycerin (Ntg) 0.4 mg Q5M X 3 DOSES PRN SL Prn Chest Pain 02/12/17 08:00 03/11/17 07:59 Ondansetron HCl (Zofran) 4 mg Q6H PRN IVP Nausea & Vomiting 02/12/17 08:00 03/11/17 07:59 Pantoprazole (Protonix) 40 mg EVERY 12 HOURS IVP 02/12/17 09:00 03/12/17 08:59 02/13/17 08:44 Polyethylene Glycol (Miralax) 17 gm HSPRN PRN ORAL Constipation 1st line Agent 02/12/17 21:00 03/11/17 20:59 Sennosides (Senokot) 17.2 mg DAILY ORAL 02/12/17 09:00 03/12/17 08:59 02/13/17 08:43 Sucralfate (Carafate) 1 gm FOUR TIMES A DAY ORAL 02/12/17 09:00 03/12/17 08:59 02/13/17 08:42 Temazepam (Restoril) 15 mg HSPRN PRN ORAL Insomnia 02/12/17 21:00 02/16/17 20:59 Susan Brown NP ([facility]) Feb 13, 2017 09:19
[2017-02-13 12:00] VITALS: BP 126/77
--- NOTE | 2017-02-13 14:19 | General Progress Note ---
Assessment/Plan Assessment/Plan Assessment - UGIB - esophageal ulcers - OBS - Anemia - PVD - DM Recommendations - PPI - Push PO - Elevate HOB - Monitor CBC - reflux precautions Subjective Allergies: Coded Allergies: No Known Allergies (Unverified , 02/09/17) Subjective no events overnight no complaints Objective Last 24 Hour Vital Signs Date Time Temp Pulse Resp B/P (MAP) Pulse Ox O2 Delivery O2 Flow Rate FiO2 02/13/17 12:00 98.1 70 18 126/77 100 Nasal Cannula 1.0 02/13/17 08:44 73 154/81 02/13/17 08:43 154/81 02/13/17 08:43 73 154/81 02/13/17 08:00 98.0 73 18 154/81 100 Nasal Cannula 2.0 02/13/17 04:00 98.3 70 18 161/81 100 Room Air 02/13/17 00:00 98.2 70 19 149/82 100 02/12/17 20:55 157/79 02/12/17 20:55 70 157/79 02/12/17 20:00 97.6 70 18 157/79 100 02/12/17 16:02 98.2 76 18 141/67 99 Nasal Cannula 2.0 Intake and Output 02/13/17 02/14/17 19:00 07:00 Intake Total 270 ml Output Total 600 ml Balance -330 ml Intake Oral 270 ml Output Urine Total 600 ml Laboratory Tests 02/13/17 07:05: White Blood Count 9.1, Red Blood Count 2.74L, Hemoglobin 8.3L, Hematocrit 26.9L , Mean Corpuscular Volume 98, Mean Corpuscular Hemoglobin 30.2, Mean Corpuscular Hemoglobin Concent 30.7L, Red Cell Distribution Width 12.4, Platelet Count 122L, Mean Platelet Volume 12.3H, Neutrophils (%) (Auto) 67.4, Lymphocytes (%) (Auto) 18.4L, Monocytes (%) (Auto) 9.9, Eosinophils (%) (Auto) 3.6H, Basophils (%) (Auto) 0.7, Sodium Level 145, Potassium Level 4.3, Chloride Level 111H, Carbon Dioxide Level 28, Anion Gap 6, Blood Urea Nitrogen 35H, Creatinine 3.1H, Estimat Glomerular Filtration Rate , Glucose Level 123H, Calcium Level 8.6 Height (Feet): 5 Height (Inches): 8.00 Weight (Pounds): 170 Objective elderly AA man NCAT supple CTA RRR soft ND NT (+) Right NATALIA RICHARDS Feb 13, 2017 14:19
[2017-02-13 15:44] VITALS: BP 143/66
--- NOTE | 2017-02-13 16:25 | Internal Med Progress Note ---
Subjective Date of Service: Feb 13, 2017 Physician Name Ghazal Hess Attending Physician Danial Tran MD Current Medications Medications (Trade) Dose Ordered Sig/Thad Route PRN Reason Start Time Stop Time Status Last Admin Dose Admin Acetaminophen (Tylenol) 650 mg Q4H PRN ORAL FEVER>100.5 02/12/17 08:00 03/11/17 07:59 Al Hydroxide/Mg Hydroxide (Mylanta II) 30 ml Q6H PRN ORAL dyspepsia 02/12/17 08:00 03/11/17 07:59 Amlodipine Besylate (Norvasc) 10 mg DAILY ORAL 02/12/17 09:00 03/12/17 08:59 02/13/17 08:43 Carvedilol (Coreg) 12.5 mg EVERY 12 HOURS ORAL 02/12/17 09:00 03/11/17 20:59 02/13/17 08:44 Dextrose (Dextrose 50%) STAT PRN IV Hypoglycemia 02/12/17 08:00 03/11/17 07:59 Diphenhydramine HCl (Benadryl) 25 mg Q6H PRN ORAL Itching/Pruritis 02/12/17 08:00 03/11/17 07:59 Docusate Sodium (Colace) 100 mg TWICE A DAY ORAL 02/12/17 09:00 03/12/17 08:59 02/13/17 08:44 Enalaprilat (Vasotec) 2.5 mg Q4H PRN IV sbp more than 200 02/12/17 08:00 03/12/17 07:59 Hydralazine HCl (Apresoline) 25 mg EVERY 12 HOURS ORAL 02/12/17 09:00 03/11/17 20:59 02/13/17 08:43 Insulin Aspart (NovoLOG) BEFORE MEALS AND HS SUBQ 02/12/17 11:30 03/11/17 21:59 02/13/17 11:47 Mineral Oil (Mineral Oil) 30 ml DAILY PRN ORAL Constipation 02/12/17 09:00 03/13/17 10:59 Morphine Sulfate (Morphine Sulfate) 2 mg Q4H PRN IVP severe Pain (Pain Scale 7-10) 02/12/17 08:00 02/16/17 07:59 Nitroglycerin (Ntg) 0.4 mg Q5M X 3 DOSES PRN SL Prn Chest Pain 02/12/17 08:00 03/11/17 07:59 Ondansetron HCl (Zofran) 4 mg Q6H PRN IVP Nausea & Vomiting 02/12/17 08:00 03/11/17 07:59 Pantoprazole (Protonix) 40 mg EVERY 12 HOURS IVP 02/12/17 09:00 03/12/17 08:59 02/13/17 08:44 Polyethylene Glycol (Miralax) 17 gm HSPRN PRN ORAL Constipation 1st line Agent 02/12/17 21:00 03/11/17 20:59 Sennosides (Senokot) 17.2 mg DAILY ORAL 02/12/17 09:00 03/12/17 08:59 02/13/17 08:43 Sucralfate (Carafate) 1 gm FOUR TIMES A DAY ORAL 02/12/17 09:00 03/12/17 08:59 02/13/17 12:34 Temazepam (Restoril) 15 mg HSPRN PRN ORAL Insomnia 02/12/17 21:00 02/16/17 20:59 Allergies: Coded Allergies: No Known Allergies (Unverified , 02/09/17) ROS Limited/Unobtainable: No Constitutional: Reports: no symptoms HEENT: Reports: no symptoms Cardiovascular: Reports: no symptoms Respiratory: Reports: no symptoms Gastrointestinal/Abdominal: Reports: no symptoms Genitourinary: Reports: no symptoms Neurologic/Psychiatric: Reports: no symptoms Subjective 72 YO M admitted with chief complaint of GI bleed. Cover for Int Javon-Dr Tran. Objective Last Vital Signs Date Time Temp Pulse Resp B/P (MAP) Pulse Ox O2 Delivery O2 Flow Rate FiO2 02/13/17 15:44 97.7 66 20 143/66 100 Nasal Cannula 2.0 Laboratory Tests Test 02/13/17 07:05 White Blood Count 9.1 K/UL (4.8-10.8) Red Blood Count 2.74 M/UL (4.70-6.10) L Hemoglobin 8.3 G/DL (14.2-18.0) L Hematocrit 26.9 % (42.0-52.0) L Mean Corpuscular Volume 98 FL (80-99) Mean Corpuscular Hemoglobin 30.2 PG (27.0-31.0) Mean Corpuscular Hemoglobin Concent 30.7 G/DL (32.0-36.0) L Red Cell Distribution Width 12.4 % (11.6-14.8) Platelet Count 122 K/UL (150-450) L Mean Platelet Volume 12.3 FL (6.5-10.1) H Neutrophils (%) (Auto) 67.4 % (45.0-75.0) Lymphocytes (%) (Auto) 18.4 % (20.0-45.0) L Monocytes (%) (Auto) 9.9 % (1.0-10.0) Eosinophils (%) (Auto) 3.6 % (0.0-3.0) H Basophils (%) (Auto) 0.7 % (0.0-2.0) Sodium Level 145 MMOL/L (136-145) Potassium Level 4.3 MMOL/L (3.5-5.1) Chloride Level 111 MMOL/L (98-107) H Carbon Dioxide Level 28 MMOL/L (21-32) Anion Gap 6 mmol/L (5-15) Blood Urea Nitrogen 35 mg/dL (7-18) H Creatinine 3.1 MG/DL (0.55-1.30) H Estimat Glomerular Filtration Rate mL/min (>60) Glucose Level 123 MG/DL (74-106) H Calcium Level 8.6 MG/DL (8.5-10.1) Intake and Output 02/13/17 02/14/17 19:00 07:00 Intake Total 270 ml Output Total 600 ml Balance -330 ml Intake Oral 270 ml Output Urine Total 600 ml Objective General Appearance: WD/WN, alert, mild distress EENT: normal ENT inspection Neck: non-tender, normal alignment, supple Cardiovascular: normal peripheral pulses, normal rate, regular rhythm, no gallop/murmur, no JVD Respiratory/Chest: chest wall non-tender, lungs clear, normal breath sounds, no respiratory distress, no accessory muscle use Abdomen: no organomegaly, no mass, decreased bowel sounds, tender Extremities: normal range of motion 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 Acute gastrointestinal bleed, most likely upper gastrointestinal bleed. 2. Chronic constipation. 3. Dementia. 4. Symptomatic anemia, most likely acute gastrointestinal bleed due to acute blood loss. 5. History of right below-knee amputation. 6. Hypertension. PLAN: Admit the patient to telemetry. We will follow up with Dr. Grady's recommendation for EGD. We will resume halfway medications except aspirin. NPO after midnight. Code Status is Full Code. Discharge to [facility] 02/14/17. GHAZAL HESS Feb 13, 2017 16:25
[2017-02-13] MEDS ORDERED: Tubing IV Secondary IV ONE (18:04)
[2017-02-13] MEDS ORDERED: D5NS 1000ml IV ONE (18:04)
[2017-02-13 20:00] VITALS: BP 148/71
[2017-02-14] VITALS: BP 134/72
[2017-02-14 04:00] VITALS: BP 142/74
[2017-02-14] MEDS: NovoLOG Insulin Flexpen SUBQ SCH ×4 (06:07→21:02)
[2017-02-14 08:00] VITALS: BP 156/81
[2017-02-14] MEDS: Sennosides 8.6mg ORAL SCH (08:23)
[2017-02-14] MEDS: Sucralfate 1gm tab ORAL SCH ×4 (08:24→20:57)
[2017-02-14] MEDS: HydrALAZINE 25mg tab ORAL SCH ×2 (08:24→20:57)
[2017-02-14] MEDS: Docusate 100mg cap ORAL SCH ×2 (08:25→18:03)
[2017-02-14] MEDS: Carvedilol 12.5mg tab ORAL SCH ×2 (08:25→20:57)
[2017-02-14] MEDS: Pantoprazole Inj IVP SCH ×2 (08:26→20:57)
[2017-02-14 09:10] LABS: BASOPHILS % (AUTO) 1.3 % (0.0-2.0); EOSINOPHILS % (AUTO) 3.4 % (0.0-3.0); LYMPHOCYTES % (AUTO) 20.1 % (20.0-45.0); MEAN CORPUSCULAR HEMOGLOBIN 30.2 PG (27.0-31.0); MEAN CORPUSCULAR HGB CONC 30.9 G/DL (32.0-36.0); MEAN CORPUSCULAR VOLUME 98 FL (80-99); MEAN PLATELET VOLUME 14.3 FL (6.5-10.1); NEUTROPHILS % (AUTO) 65.1 % (45.0-75.0); PLATELET COUNT 129 K/UL (150-450); RED BLOOD COUNT 2.91 M/UL (4.70-6.10); RED CELL DISTRIBUTION WIDTH 12.8 % (11.6-14.8); WHITE BLOOD COUNT 8.5 K/UL (4.8-10.8)
[2017-02-14 09:27] LABS: ANION GAP 6 mmol/L (5-15); CALCIUM 8.6 MG/DL (8.5-10.1); CARBON DIOXIDE 28 MMOL/L (21-32); CHLORIDE 107 MMOL/L (98-107); POTASSIUM 4.1 MMOL/L (3.5-5.1); SODIUM 141 MMOL/L (136-145)
--- NOTE | 2017-02-14 11:29 | GI Progress Note ---
Assessment/Plan Problems: (1) Hematemesis ICD Codes: K92.0 - Hematemesis SNOMED: 0492508 Qualifiers: Qualified Codes: K92.0 - Hematemesis (2) Dementia ICD Codes: F03.90 - Unspecified dementia without behavioral disturbance SNOMED: 91938916 (3) Symptomatic anemia ICD Codes: D64.9 - Anemia, unspecified SNOMED: 522635404 (4) Diabetes mellitus ICD Codes: E11.9 - Type 2 diabetes mellitus without complications SNOMED: 63381895 (5) Hx of right BKA ICD Codes: Z89.511 - Acquired absence of right leg below knee SNOMED: 692451331, 208418052, 292174627 Status: stable Status Narrative Discussed with Dr. Grady. Assessment/Plan s/p EGD SUMMARY OF FINDINGS: 1. Distal esophageal ulcerations multiple, status post biopsy. 2. Gastritis, status post biopsy. 3. One gastric polyp removed. RECOMMENDATION: Follow up biopsy results and treat accordingly. Elevate head of the bed at all times. PPI and Carafate. Monitor hemoglobin and hematocrit and transfuse as needed. Start diet. bowel regime >> colace + miralax, mineral oil prn fu labs The patient was seen and examined at bedside and all new and available data was reviewed in the patients chart. I agree with the above findings, impression and plan. (Patient seen earlier today. Signature stamp does not reflect patient encounter time.). - Brant Grady MD Subjective Subjective feels better Objective Last 24 Hour Vital Signs Date Time Temp Pulse Resp B/P (MAP) Pulse Ox O2 Delivery O2 Flow Rate FiO2 02/14/17 08:25 74 156/81 02/14/17 08:25 74 156/81 02/14/17 08:24 156/81 02/14/17 08:00 98.1 74 20 156/81 98 Room Air 02/14/17 04:00 97.9 68 18 142/74 99 Nasal Cannula 2.0 02/14/17 00:00 98.3 71 18 134/72 100 Nasal Cannula 2.0 02/13/17 20:46 154/74 02/13/17 20:46 65 154/74 02/13/17 20:00 97.6 68 16 148/71 100 Nasal Cannula 2.0 12/17/17 15:44 97.7 66 20 143/66 100 Nasal Cannula 2.0 02/13/17 12:00 98.1 70 18 126/77 100 Nasal Cannula 1.0 Laboratory Tests Test 02/14/17 08:10 White Blood Count 8.5 K/UL (4.8-10.8) Red Blood Count 2.91 M/UL (4.70-6.10) L Hemoglobin 8.8 G/DL (14.2-18.0) L Hematocrit 28.4 % (42.0-52.0) L Mean Corpuscular Volume 98 FL (80-99) Mean Corpuscular Hemoglobin 30.2 PG (27.0-31.0) Mean Corpuscular Hemoglobin Concent 30.9 G/DL (32.0-36.0) L Red Cell Distribution Width 12.8 % (11.6-14.8) Platelet Count 129 K/UL (150-450) L Mean Platelet Volume 14.3 FL (6.5-10.1) H Neutrophils (%) (Auto) 65.1 % (45.0-75.0) Lymphocytes (%) (Auto) 20.1 % (20.0-45.0) Monocytes (%) (Auto) 10.0 % (1.0-10.0) Eosinophils (%) (Auto) 3.4 % (0.0-3.0) H Basophils (%) (Auto) 1.3 % (0.0-2.0) Sodium Level 141 MMOL/L (136-145) Potassium Level 4.1 MMOL/L (3.5-5.1) Chloride Level 107 MMOL/L (98-107) Carbon Dioxide Level 28 MMOL/L (21-32) Anion Gap 6 mmol/L (5-15) Blood Urea Nitrogen 32 mg/dL (7-18) H Creatinine 3.0 MG/DL (0.55-1.30) H Estimat Glomerular Filtration Rate mL/min (>60) Glucose Level 107 MG/DL (74-106) H Calcium Level 8.6 MG/DL (8.5-10.1) Height (Feet): 5 Height (Inches): 8.00 Weight (Pounds): 170 General Appearance: WD/WN, no apparent distress, alert Cardiovascular: normal rate Respiratory/Chest: normal breath sounds, no respiratory distress Abdominal Exam: normal bowel sounds, non tender, soft Extremities: normal range of motion, non-tender May Scales N.P. Feb 14, 2017 11:29 DAYNA GRADY Feb 15, 2017 08:32
[2017-02-14 12:16] VITALS: BP 132/65
[2017-02-14 15:40] VITALS: BP 155/71
--- NOTE | 2017-02-14 19:04 | Internal Med Progress Note ---
Subjective Date of Service: Feb 14, 2017 Physician Name Ghazal Hess Attending Physician Danial Tran MD Current Medications Medications (Trade) Dose Ordered Sig/Thad Route PRN Reason Start Time Stop Time Status Last Admin Dose Admin Acetaminophen (Tylenol) 650 mg Q4H PRN ORAL FEVER>100.5 02/12/17 08:00 03/11/17 07:59 Al Hydroxide/Mg Hydroxide (Mylanta II) 30 ml Q6H PRN ORAL dyspepsia 02/12/17 08:00 03/11/17 07:59 Amlodipine Besylate (Norvasc) 10 mg DAILY ORAL 02/12/17 09:00 03/12/17 08:59 02/14/17 08:25 Carvedilol (Coreg) 12.5 mg EVERY 12 HOURS ORAL 02/12/17 09:00 03/11/17 20:59 02/14/17 08:25 Dextrose (Dextrose 50%) STAT PRN IV Hypoglycemia 02/12/17 08:00 03/11/17 07:59 Diphenhydramine HCl (Benadryl) 25 mg Q6H PRN ORAL Itching/Pruritis 02/12/17 08:00 03/11/17 07:59 Docusate Sodium (Colace) 100 mg TWICE A DAY ORAL 02/12/17 09:00 03/12/17 08:59 02/14/17 18:03 Enalaprilat (Vasotec) 2.5 mg Q4H PRN IV sbp more than 200 02/12/17 08:00 03/12/17 07:59 Hydralazine HCl (Apresoline) 25 mg EVERY 12 HOURS ORAL 02/12/17 09:00 03/11/17 20:59 02/14/17 08:24 Insulin Aspart (NovoLOG) BEFORE MEALS AND HS SUBQ 02/12/17 11:30 03/11/17 21:59 02/14/17 16:35 Mineral Oil (Mineral Oil) 30 ml DAILY PRN ORAL Constipation 02/12/17 09:00 03/13/17 10:59 Morphine Sulfate (Morphine Sulfate) 2 mg Q4H PRN IVP severe Pain (Pain Scale 7-10) 02/12/17 08:00 02/16/17 07:59 Nitroglycerin (Ntg) 0.4 mg Q5M X 3 DOSES PRN SL Prn Chest Pain 02/12/17 08:00 03/11/17 07:59 Ondansetron HCl (Zofran) 4 mg Q6H PRN IVP Nausea & Vomiting 02/12/17 08:00 03/11/17 07:59 Pantoprazole (Protonix) 40 mg EVERY 12 HOURS IVP 02/12/17 09:00 03/12/17 08:59 02/14/17 08:26 Polyethylene Glycol (Miralax) 17 gm HSPRN PRN ORAL Constipation 1st line Agent 02/12/17 21:00 03/11/17 20:59 Sennosides (Senokot) 17.2 mg DAILY ORAL 02/12/17 09:00 03/12/17 08:59 02/14/17 08:23 Sucralfate (Carafate) 1 gm FOUR TIMES A DAY ORAL 02/12/17 09:00 03/12/17 08:59 02/14/17 18:03 Temazepam (Restoril) 15 mg HSPRN PRN ORAL Insomnia 02/12/17 21:00 02/16/17 20:59 Allergies: Coded Allergies: No Known Allergies (Unverified , 02/09/17) ROS Limited/Unobtainable: No Constitutional: Reports: no symptoms HEENT: Reports: no symptoms Cardiovascular: Reports: no symptoms Respiratory: Reports: no symptoms Gastrointestinal/Abdominal: Reports: no symptoms Genitourinary: Reports: no symptoms Neurologic/Psychiatric: Reports: no symptoms Subjective 72 YO M admitted with chief complaint of GI bleed. Cover for Int Javon-Dr Tran. S/P endoscopy on 02/10/17. Objective Last Vital Signs Date Time Temp Pulse Resp B/P (MAP) Pulse Ox O2 Delivery O2 Flow Rate FiO2 02/14/17 15:40 98.3 70 20 155/71 96 Room Air 02/14/17 04:00 2.0 Laboratory Tests Test 02/14/17 08:10 White Blood Count 8.5 K/UL (4.8-10.8) Red Blood Count 2.91 M/UL (4.70-6.10) L Hemoglobin 8.8 G/DL (14.2-18.0) L Hematocrit 28.4 % (42.0-52.0) L Mean Corpuscular Volume 98 FL (80-99) Mean Corpuscular Hemoglobin 30.2 PG (27.0-31.0) Mean Corpuscular Hemoglobin Concent 30.9 G/DL (32.0-36.0) L Red Cell Distribution Width 12.8 % (11.6-14.8) Platelet Count 129 K/UL (150-450) L Mean Platelet Volume 14.3 FL (6.5-10.1) H Neutrophils (%) (Auto) 65.1 % (45.0-75.0) Lymphocytes (%) (Auto) 20.1 % (20.0-45.0) Monocytes (%) (Auto) 10.0 % (1.0-10.0) Eosinophils (%) (Auto) 3.4 % (0.0-3.0) H Basophils (%) (Auto) 1.3 % (0.0-2.0) Sodium Level 141 MMOL/L (136-145) Potassium Level 4.1 MMOL/L (3.5-5.1) Chloride Level 107 MMOL/L (98-107) Carbon Dioxide Level 28 MMOL/L (21-32) Anion Gap 6 mmol/L (5-15) Blood Urea Nitrogen 32 mg/dL (7-18) H Creatinine 3.0 MG/DL (0.55-1.30) H Estimat Glomerular Filtration Rate mL/min (>60) Glucose Level 107 MG/DL (74-106) H Calcium Level 8.6 MG/DL (8.5-10.1) Intake and Output 02/14/17 02/15/17 19:00 07:00 Intake Total 420 ml Balance 420 ml Intake Oral 420 ml Objective General Appearance: WD/WN, alert, mild distress EENT: normal ENT inspection Neck: non-tender, normal alignment, supple Cardiovascular: normal peripheral pulses, normal rate, regular rhythm, no gallop/murmur, no JVD Respiratory/Chest: chest wall non-tender, lungs clear, normal breath sounds, no respiratory distress, no accessory muscle use Abdomen: no organomegaly, no mass, decreased bowel sounds, tender Extremities: normal range of motion Neurologic: meat passer II-XII grossly normal Skin: normal pigmentation Assessment/Plan Assessment/Plan 1. Acute gastrointestinal bleed, most likely upper gastrointestinal bleed.-S/P endoscopy 02/10/17=esophageal ulcers. 2. Chronic constipation. 3. Dementia. 4. Symptomatic anemia, most likely acute gastrointestinal bleed due to acute blood loss. 5. History of right below-knee amputation. 6. Hypertension. PLAN: Admit the patient to telemetry. We will follow up with Dr. Grady's recommendation for EGD. We will resume skilled nursing medications except aspirin. NPO after midnight. Code Status is Full Code. Discharge to [facility] 02/14/17. GHAZAL HESS Feb 14, 2017 19:04
[2017-02-14 20:00] VITALS: BP 149/77
[2017-02-15 00:28] VITALS: BP 154/72
[2017-02-15 04:00] VITALS: BP 166/77
[2017-02-15] MEDS: NovoLOG Insulin Flexpen SUBQ SCH ×2 (06:00→12:24)
[2017-02-15 08:00] VITALS: BP 145/67
[2017-02-15 08:53] LABS: BASOPHILS % (AUTO) 0.8 % (0.0-2.0); EOSINOPHILS % (AUTO) 3.3 % (0.0-3.0); LYMPHOCYTES % (AUTO) 24.9 % (20.0-45.0); MEAN CORPUSCULAR HEMOGLOBIN 30.8 PG (27.0-31.0); MEAN CORPUSCULAR HGB CONC 31.7 G/DL (32.0-36.0); MEAN CORPUSCULAR VOLUME 97 FL (80-99); MEAN PLATELET VOLUME 14.2 FL (6.5-10.1); MONOCYTES % (AUTO) 10.2 % (1.0-10.0); NEUTROPHILS % (AUTO) 60.8 % (45.0-75.0); PLATELET COUNT 124 K/UL (150-450); RED BLOOD COUNT 2.89 M/UL (4.70-6.10); RED CELL DISTRIBUTION WIDTH 12.5 % (11.6-14.8); WHITE BLOOD COUNT 7.8 K/UL (4.8-10.8)
[2017-02-15 09:01] LABS: ANION GAP 7 mmol/L (5-15); CALCIUM 8.7 MG/DL (8.5-10.1); CARBON DIOXIDE 27 MMOL/L (21-32); CHLORIDE 107 MMOL/L (98-107); CREATININE 3.1 MG/DL (0.55-1.30); POTASSIUM 4.1 MMOL/L (3.5-5.1); SODIUM 141 MMOL/L (136-145)
[2017-02-15] MEDS: Sucralfate 1gm tab ORAL SCH (09:28)
[2017-02-15] MEDS: Sennosides 8.6mg ORAL SCH (09:28)
[2017-02-15] MEDS: Docusate 100mg cap ORAL SCH (09:28)
[2017-02-15] MEDS: Carvedilol 12.5mg tab ORAL SCH (09:29)
[2017-02-15] MEDS: Pantoprazole Inj IVP SCH (09:29)
[2017-02-15] MEDS: HydrALAZINE 25mg tab ORAL SCH (09:29)
[2017-02-15 11:58] VITALS: BP 115/60
--- NOTE | 2017-02-15 18:35 | Discharge Summary ---
Discharge Summary Hospital Course Date of Admission Feb 09, 2017 at 13:12 Date of Discharge Feb 15, 2017 at 13:15 Admitting Diagnosis GI bleed HPI Luis Lane is a 72 year old male who was admitted on Feb 09, 2017 at 13: 12 for Gastro Intestinal Bleed Hospital Course [id number] Discharge Discharge Disposition Patient was discharged to snf Discharge Diagnoses: Jazzy Garrido NP Feb 15, 2017 18:35
--- NOTE | 2017-02-16 05:00 | Discharge Summary 2 SIG ---
DATE OF ADMISSION: 02/09/2017 DATE OF DISCHARGE: 02/15/2017 CONSULTANTS: 1. Arturo Oneill M.D. 2. Andrés Grady M.D. BRIEF HOSPITAL COURSE: The patient is a 72-year-old gentleman with past medical history significant for coronary artery disease, dyslipidemia, posttraumatic stress disorder, anemia of chronic disease, prostate CA, dementia, hypertension, CHF, and status post right BKA, presented to the hospital from nursing facility after he was noted to be vomiting blood. History was limited due to patient's dementia. On evaluation at ED, the patient's hemoglobin was 8.5 and creatinine was 4.0. He was started on Protonix drip. CT of the abdomen did not show any small bowel obstruction or volvulus. He was admitted to telemetry for acute GI bleed. Dr. Grady was consulted. The patient was continued on NPO and was given IV fluids. Protonix drip was transitioned to IV push b.i.d. He underwent an upper endoscopy on 02/10/2017 with multiple distal esophageal ulcerations, gastritis, and one gastric polyp, which was removed. He was given PPI and Carafate and was eventually started on a diet. He underwent a swallow evaluation and venous duplex of lower extremity was negative for DVT. He has a history of chronic kidney disease. Renal parameters were monitored. He was continued on his antihypertensives, Norvasc 10 mg, Coreg 12.5 mg twice a day, and hydralazine 25 mg b.i.d. He was given bowel regimen consisting of Colace, MiraLAX, and mineral oil. He was downgraded to medical floor. Hemoglobin and hematocrit was stable. Hemoglobin and hematocrit has stabilized without any need for blood transfusion. He was tolerating diet well. Pathology result was negative for H. pylori with reactive changes. He was eventually discharged back to half-way. FINAL DIAGNOSES: 1. Acute gastrointestinal bleed. 2. Symptomatic anemia, most likely due to acute gastrointestinal bleed due to acute blood loss. 3. Constipation. 4. Dementia. 5. Right below-knee amputation. 6. Hypertension. 7. Esophageal ulcers. 8. Status post esophagogastroduodenoscopy on 02/10/2017. 9. Moderate dysphagia. 10. Prostate cancer. DISPOSITION: The patient was discharged to SNF. DISCHARGE MEDICATIONS: Refer to medication list. Danial Tran M.D. I have been assigned to dictate discharge summary on this account and I was not involved in the patient's management. Jazzy Garrido N.P. DR: CHERIE JOB#: [id number] CC:
--- NOTE | 2017-02-21 19:23 | Cardiology Report ---
APPROVED REPORT EKG Measurement Heart [id number] Sinus rhythm with sinus arrhythmia with 1st degree AV block Right bundle branch block, plus right ventricular hypertrophy Abnormal ECG
--- NOTE | 2017-02-24 00:16 | Diagnostic Imaging Report ---
APPROVED REPORT CPT Code: 30259 Present Symptoms Lower Extremity Pain: Comments: R/O DVT. Hx diabetes. Hx rt calf amputee below the knee. RIGHT LEG: Venous imaging reveals a patent deep venous system. There is no evidence of thrombus within the femoral or popliteal segments. The greater saphenous vein is also within normal limits. Doppler indicates normal spontaneous flow within these segments. LEFT LEG: Venous imaging reveals a patent deep venous system. There is no evidence of thrombus within the femoral, popliteal or tibial segments. The greater saphenous vein is also within normal limits. Doppler indicates normal spontaneous flow within these segments.
== END 2017-02-15 13:15 | DRG 378 ==
LOC: EDBD 12:29 → EMR 13:05 → 2E 13:12 → EDBEDREQ 13:43 → 2E 17:58 → 3E 02-11 19:28
PROC: 0DB58ZX Excision of Esophagus, Via Natural or Artificial Opening Endoscopic, Diagnostic (ICD-10-PCS; principal; 2017-02-10 07:18)
PROC: 0DB78ZX Excision of Stomach, Pylorus, Via Natural or Artificial Opening Endoscopic, Diagnostic (ICD-10-PCS; principal; 2017-02-10 07:18)
PROC: 0DB68ZZ Excision of Stomach, Via Natural or Artificial Opening Endoscopic (ICD-10-PCS; principal; 2017-02-10 07:18)
DX: K92.2 Gastrointestinal hemorrhage, unspecified (principal); K22.10 Ulcer of esophagus without bleeding; F03.90 Unspecified dementia, unspecified severity, without behavioral disturbance, psychotic disturbance, mood disturbance, and anxiety; I50.9 Heart failure, unspecified; I13.0 Hypertensive heart and chronic kidney disease with heart failure and stage 1 through stage 4 chronic kidney disease, or unspecified chronic kidney disease; E11.22 Type 2 diabetes mellitus with diabetic chronic kidney disease; D62 Acute posthemorrhagic anemia; E11.9 Type 2 diabetes mellitus without complications; K31.7 Polyp of stomach and duodenum; K59.00 Constipation, unspecified; N18.9 Chronic kidney disease, unspecified; R73.9 Hyperglycemia, unspecified; Z89.511 Acquired absence of right leg below knee; F43.10 Post-traumatic stress disorder, unspecified; I25.10 Atherosclerotic heart disease of native coronary artery without angina pectoris; Z85.46 Personal history of malignant neoplasm of prostate; Z79.02 Long term (current) use of antithrombotics/antiplatelets; H54.8 Legal blindness, as defined in USA; I10 Essential (primary) hypertension; R13.10 Dysphagia, unspecified; K29.70 Gastritis, unspecified, without bleeding
CPT/HCPCS: 36415; 74176; 80048; 80053; 82150; 82270; 82607; 82728; 82747; 82962; 83540; 83550; 83690; 85025; 85610; 85730; 86850; 86900; 86901; 93005; 93970; 94003; 94150; 99285; J1815; J2405